=== PATIENT | female | born 1945 | race African-American/Black ===

== ENCOUNTER 2019-02-25 16:26 | Emergency (ER) | payer OTHER ==
[~2019-02-25] VITALS: Ht 167.6 cm; Wt 59.0 kg
[~2019-02-25 16:26] MED LIST: DIOCTO50 MG/5 ML PER TUBE; DSS250 MG PO; FERROUS SU220 MG/53 PER TUBE; IRON325 PO; LEVAQUIN 500 M500 MG PO; LEVOTHYROXIN0.025 MG PER TUBE; METOPROLOL TART25 MG PER TUBE; MIRALAX17 GM PER TUBE; MULTI-DELYN5 ML PER TUBE; PEPCID20 MG PER TUBE; PREDNISONE 5 MG5 M1 PER TUBE; PROMETHAZINE/C118 ML PO; SPIRONOLACTONE25 M1 PER TUBE; TERAZOSIN HCL10 MG PER TUBE; TYLENOL325 MG PER TUBE; URECHOLINE PER TUBE; VITAMINC500 PER TUBE; VITAMINC500 PO; XARELTO10 MG PER TUBE; [UNRECOGNIZED DRUG - OTHER] PO
[2019-02-25 17:00] LABS: URINE BILIRUBIN NEGATIVE (Negative); URINE BLOOD TRACE (Negative); URINE CLARITY SL CLOUDY; URINE COLOR YELLOW; URINE GLUCOSE-RANDOM* NEGATIVE (Negative); URINE KETONES NEGATIVE (Negative); URINE PROTEIN (DIPSTICK) 1+ (Negative); URINE UROBILINOGEN 0.2 E.U./dl (0.2-1.0)
[2019-02-25 17:01] LABS: URINE LEUKOCYTES-REFLEX 3+ (Negative); URINE NITRITE-REFLEX POSITIVE (Negative)
[2019-02-25 17:17] LABS: CASTS None Seen /LPF (None Seen); CRYSTALS None Seen /LPF (None Seen); SQUAMOUS 0-3 Few /LPF (0-3)
[2019-02-25 17:18] LABS: BACTERIA-REFLEX >30 Many /HPF (None Seen); URINE RBC 0-2 Rare /HPF (0-2); URINE WBC-REFLEX >25 Many /HPF (0-5)
[2019-02-25 17:22] LABS: ABSOLUTE NEUTROPHILS 3.1 thou/uL (1.4-8.2); BASOPHILS 0.7 % (0.0-2.0); EOSINOPHILS 2.5 % (0.0-3.0); HEMATOCRIT 36.8 % (37.0-47.0); HEMOGLOBIN 12.2 gm/dL (12.0-15.0); LYMPHOCYTES 30.1 % (24.0-44.0); MCH 28.3 pg (26.0-34.0); MCV 85.7 fL (80.0-100.0); MONOCYTES 10.7 % (1.0-8.0); PLATELET COUNT 214 thou/uL (150-400); RDW 14.5 % (10.5-14.5); WBC 5.6 thou/uL (4.0-11.0)
[2019-02-25 17:35] LABS: ALBUMIN 3.4 g/dL (3.4-5.0); CALCIUM 9.6 mg/dL (8.5-10.1); CREATININE 0.9 mg/dL (0.6-1.0); TOTAL BILIRUBIN 0.3 mg/dL (<0.1-1.0)
[2019-02-25 17:47] LABS: POTASSIUM 3.7 mmol/L (3.5-5.1)
[2019-02-25] MEDS ORDERED: KEFLEX500 M1 PO (18:00)
[2019-02-25 18:24] VITALS: BP 135/75
== END 2019-02-25 18:03 | disposition home or self-care (01) ==
LOC: ER 16:26
PROVIDERS: Nurse Practitioner; Student in an Organized Health Care Education/Training Program
DX: N39.0 Urinary tract infection, site not specified (principal); E86.0 Dehydration; I10 Essential (primary) hypertension; Z86.73 Personal history of transient ischemic attack (TIA), and cerebral infarction without residual deficits; Z88.6 Allergy status to analgesic agent

== ENCOUNTER → 2019-05-03 | Outpatient (CLI) | payer OTHER ==
[~2019-05-03] MED LIST changes: +KEFLEX500 M1 PO
== END ==
LOC: CAT 10:28 → EDSTATUS 16:59
DX: I67.82 Cerebral ischemia (principal); R90.82 White matter disease, unspecified; G93.89 Other specified disorders of brain

== ENCOUNTER → 2019-05-05 | Outpatient (CLI) | payer OTHER | LOC: MRI 12:39 | DX: I63.9 Cerebral infarction, unspecified (principal); G93.89 Other specified disorders of brain; R90.82 White matter disease, unspecified ==

== ENCOUNTER 2020-10-02 17:53 | Emergency (ER) | payer OTHER ==
[~2020-10-02] VITALS: Ht 160 cm; Wt 61.2 kg
[2020-10-02 19:33] LABS: HEMATOCRIT 35.6 % (37.0-47.0); HEMOGLOBIN 11.4 gm/dL (12.0-15.0); MCH 27.7 pg (26.0-34.0); MCV 86.7 fL (80.0-100.0); RDW 14.2 % (10.5-14.5); WBC 6.6 thou/uL (4.0-11.0)
[2020-10-02 19:42] LABS: ANION GAP 10 mmol/L (7-16); BUN 30 mg/dL (7-18); CALCIUM 9.5 mg/dL (8.5-10.1); CHLORIDE 100 mmol/L (98-107); CO2 26 mmol/L (21-32); CREATININE 0.7 mg/dL (0.6-1.0); GLUCOSE 102 mg/dL (74-106); POTASSIUM 5.2 mmol/L (3.5-5.1); SODIUM 136 mmol/L (136-145)
[2020-10-02 19:53] LABS: ALBUMIN 2.9 g/dL (3.4-5.0); DIRECT BILIRUBIN < 0.1 mg/dL (<0.1-0.2); LIPASE 87 U/L (73-393); SGOT 61 U/L (15-37); SGPT 16 U/L (30-65); TOTAL BILIRUBIN 0.6 mg/dL (0.2-1.0); TOTAL PROTEIN 8.6 g/dL (6.4-8.2); TROPONIN-I <0.06 ng/mL (<0.06)
[2020-10-02 20:08] LABS: ABSOLUTE NEUTROPHILS 4.8 thou/uL (1.4-8.2)
[2020-10-02 20:09] LABS: PLATELET COUNT 229 thou/uL (150-400)
[2020-10-02 22:32] VITALS: BP 108/63
--- NOTE | 2020-10-03 07:17 | EKG ---
[place] [address] [facility] [place] [address] ELECTROCARDIOGRAM REPORT Name: LUIS ENRIQUE FLETCHER Room #: RAMY Allen#: [id number] Admission: 10/02/20 Attend Phys: Discharge: 10/02/20 Date of : 43 Report #: [id number] [facility] ED Test Date: 2020-10-02 Test Time: 18:06:37 Pat Name: LUIS ENRIQUE FLETCHER Department: Room: Gender: F Geospatial Applications Developer: KF : 1945 Requested By: Karan Rodarte Order Number: [id number] MD: Parag Spencer Measurements Intervals [place] Rate: 88 P: 93 MO: 135 QRS: 85 QRSD: 88 T: 51 QT: 388 QTc: 470 Interpretive Statements Sinus tachycardia Paired ventricular premature complexes Borderline right axis deviation Probable anteroseptal infarct, old Baseline wander in lead(s) V2 Compared to ECG 03/30/2015 10:10:48 Ventricular premature complex(es) now present ST (T wave) deviation now present Poor R-wave progression no longer present Electronically Signed On 10-03-2020 7:17:22 PHYSICAL SCIENCE TECHNICIAN by Parag Spencer [email or web address] <ELECTRONICALLY SIGNED> By: Parag Spencer MD, FAC 10/03/20 0717 180 180 Parag Spencer MD, [facility] /EPI
== END 2020-10-02 22:49 ==
LOC: ER 17:53
PROVIDERS: Emergency Medicine
DX: U07.1 COVID-19 (principal); R55 Syncope and collapse; R42 Dizziness and giddiness; R53.1 Weakness; E86.0 Dehydration; D64.9 Anemia, unspecified; I10 Essential (primary) hypertension; E03.9 Hypothyroidism, unspecified; Z86.718 Personal history of other venous thrombosis and embolism; Z86.73 Personal history of transient ischemic attack (TIA), and cerebral infarction without residual deficits; Z79.899 Other long term (current) drug therapy; Z79.2 Long term (current) use of antibiotics; Z88.6 Allergy status to analgesic agent

== ENCOUNTER 2020-10-04 10:51 | Emergency (ER) | payer OTHER ==
[~2020-10-04] VITALS: Ht 160 cm; Wt 45.8 kg
[2020-10-04 11:19] LABS: ABSOLUTE NEUTROPHILS 3.5 thou/uL (1.4-8.2); BASOPHILS 0.5 % (0.0-2.0); HEMATOCRIT 33.8 % (37.0-47.0); HEMOGLOBIN 11.1 gm/dL (12.0-15.0); LYMPHOCYTES 17.8 % (24.0-44.0); MCH 28.1 pg (26.0-34.0); MCV 85.3 fL (80.0-100.0); MONOCYTES 13.8 % (1.0-8.0); PLATELET COUNT 185 thou/uL (150-400); POLYS 67.9 % (36.0-66.0); RBC 3.96 mil/uL (4.20-5.00); RDW 13.8 % (10.5-14.5); WBC 5.1 thou/uL (4.0-11.0)
[2020-10-04 13:02] LABS: URINE BLOOD 1+ (Negative); URINE CLARITY CLOUDY; URINE COLOR YELLOW; URINE GLUCOSE-RANDOM* NEGATIVE (Negative); URINE KETONES TRACE (Negative); URINE NITRITE-REFLEX NEGATIVE (Negative); URINE PROTEIN (DIPSTICK) 1+ (Negative); URINE SPECIFIC GRAVITY 1.025 (1.005-1.035); URINE UROBILINOGEN 0.2 E.U./dl (0.2-1.0)
[2020-10-04 13:03] LABS: URINE LEUKOCYTES-REFLEX 2+ (Negative)
[2020-10-04 13:06] LABS: ICTOTEST (BILI CONFIRMATORY) Negative (Negative); URINE BILIRUBIN NEGATIVE (Negative)
[2020-10-04 13:54] LABS: ANION GAP 12 mmol/L (7-16); BUN 21 mg/dL (7-18); CALCIUM 9.3 mg/dL (8.5-10.1); CHLORIDE 104 mmol/L (98-107); CO2 26 mmol/L (21-32); CREATININE 0.8 mg/dL (0.6-1.0); GLUCOSE 121 mg/dL (74-106); SODIUM 142 mmol/L (136-145)
[2020-10-04 14:02] LABS: SQUAMOUS 0-3 Few /LPF (0-3); URINE RBC 3-10 Few /HPF (0-2); URINE WBC-REFLEX >25 Many /HPF (0-5)
[2020-10-04 14:03] LABS: BACTERIA-REFLEX >30 Many /HPF (None Seen); CASTS None Seen /LPF (None Seen); CRYSTALS None Seen /LPF (None Seen)
[2020-10-04 14:07] LABS: ALBUMIN 2.7 g/dL (3.4-5.0); DIRECT BILIRUBIN < 0.1 mg/dL (<0.1-0.2); LIPASE 96 U/L (73-393); SGOT 52 U/L (15-37); SGPT 17 U/L (30-65); TOTAL BILIRUBIN 0.5 mg/dL (0.2-1.0); TOTAL PROTEIN 8.3 g/dL (6.4-8.2)
[2020-10-04 16:39] VITALS: BP 117/65
== END 2020-10-04 21:23 ==
LOC: ER 10:51
PROVIDERS: Nurse Practitioner
DX: U07.1 COVID-19 (principal); J12.82 Pneumonia due to coronavirus disease 2019; N39.0 Urinary tract infection, site not specified; Z86.73 Personal history of transient ischemic attack (TIA), and cerebral infarction without residual deficits; Z93.1 Gastrostomy status; Z79.899 Other long term (current) drug therapy; Z79.2 Long term (current) use of antibiotics; Z88.6 Allergy status to analgesic agent

== ENCOUNTER 2020-10-24 16:08 | Inpatient (IN) | payer OTHER ==
[~2020-10-24] VITALS: Ht 162.6 cm; Wt 46.0 kg
[~2020-10-24 16:08] MED LIST changes: -PEPCID20 MG PER TUBE; +PEPCID20 MG PO; -TYLENOL325 MG PER TUBE; +TYLENOL325 MG PO
[2020-10-24 16:10] VITALS: BP 110/70
[2020-10-24 17:18] LABS: BASOPHILS 0.4 % (0.0-2.0); EOSINOPHILS 0.3 % (0.0-3.0); HEMATOCRIT 37.1 % (37.0-47.0); HEMOGLOBIN 11.8 gm/dL (12.0-15.0); LYMPHOCYTES 6.2 % (24.0-44.0); MCH 27.7 pg (26.0-34.0); MCHC 31.7 g/dL (28.0-37.0); MCV 87.4 fL (80.0-100.0); MONOCYTES 6.1 % (1.0-8.0); PLATELET COUNT 219 thou/uL (150-400); RBC 4.24 mil/uL (4.20-5.00); RDW 15.6 % (10.5-14.5); WBC 13.8 thou/uL (4.0-11.0)
[2020-10-24 17:19] LABS: ANION GAP 11 mmol/L (7-16); BUN 36 mg/dL (7-18); CALCIUM 9.6 mg/dL (8.5-10.1); CHLORIDE 98 mmol/L (98-107); CO2 27 mmol/L (21-32); GLUCOSE 127 mg/dL (74-106); POTASSIUM 5.8 mmol/L (3.5-5.1); SODIUM 136 mmol/L (136-145)
[2020-10-24 17:29] LABS: ALBUMIN 2.4 g/dL (3.4-5.0); SGOT 65 U/L (15-37); SGPT 25 U/L (30-65); TOTAL BILIRUBIN 0.6 mg/dL (0.2-1.0); TOTAL PROTEIN 8.4 g/dL (6.4-8.2); TROPONIN-I <0.06 ng/mL (<0.06)
[2020-10-24 17:33] LABS: APTT 22.2 Seconds (24.5-32.8); D-DIMER 3.75 ug/mLFEU (0.19-0.50); PROTIME 11.5 Seconds (9.3-11.4)
[2020-10-24 17:36] LABS: URINE BILIRUBIN NEGATIVE (Negative); URINE BLOOD NEGATIVE (Negative); URINE CLARITY CLEAR; URINE COLOR YELLOW; URINE GLUCOSE-RANDOM* NEGATIVE (Negative); URINE KETONES NEGATIVE (Negative); URINE NITRITE-REFLEX NEGATIVE (Negative); URINE PROTEIN (DIPSTICK) TRACE (Negative); URINE SPECIFIC GRAVITY >= 1.030 (1.005-1.035); URINE UROBILINOGEN 0.2 E.U./dl (0.2-1.0)
[2020-10-24 17:41] LABS: URINE LEUKOCYTES-REFLEX 1+ (Negative)
[2020-10-24 18:03] LABS: CRYSTALS None Seen /LPF (None Seen); HYALINE CASTS 0-3 Few /LPF (None Seen); MUCUS 0-3 Light strn/LPF (None Seen); SQUAMOUS 0-3 Few /LPF (0-3); URINE RBC 0-2 Rare /HPF (0-2); URINE WBC-REFLEX 6-15 Few /HPF (0-5)
[2020-10-24 18:22] VITALS: BP 110/70
[2020-10-24 18:34] VITALS: BP 112/61
[2020-10-24 20:17] LABS: TOTAL PROTEIN 6.6 g/dL (6.4-8.2)
--- NOTE | 2020-10-24 23:32 | NUR ---
admission note: provider ordered medicaion for this patient in PO and PER Tube administrations. The provider also ordered te patient to be NPO. The provider ordered sensitive medication that need to be given to the patient. Patient Does NOT have a PEG TUBE!. This was improperly assessed in ED. I did a simple bedside swollow eval on patient to check for hoarseness or choking when giving PO. No hoarseness or gurgling or choking noted, with nectar thick liquids. i was able to get er to swollow the kexalate and the ivermectin. she is only alert to person, se will say no and her name occassionally.
[2020-10-24 23:53] VITALS: BP 119/76
[2020-10-25 03:00] LABS: HEMATOCRIT 32.1 % (37.0-47.0); MCH 27.2 pg (26.0-34.0); MCHC 31.2 g/dL (28.0-37.0); MCV 87.1 fL (80.0-100.0); RBC 3.69 mil/uL (4.20-5.00); RDW 14.9 % (10.5-14.5); WBC 11.5 thou/uL (4.0-11.0)
[2020-10-25 03:25] LABS: CALCIUM 8.1 mg/dL (8.5-10.1); CREATININE 0.8 mg/dL (0.6-1.0); MAGNESIUM 1.8 mg/dL (1.8-2.4)
[2020-10-25 03:50] LABS: POTASSIUM 3.8 mmol/L (3.5-5.1)
--- NOTE | 2020-10-25 03:53 | NUR ---
CONTINUES ON ROOM AIR. AFEBRILE TONIGHT. SHE IS ALERT TO SELF AND AWAKENS EASILY. NO SIGNS OF PAIN OR DISCOMFORT. RESTING QUIETLY TONIGHT. CONTINUES ON IV FLUIDS.
[2020-10-25 05:48] VITALS: BP 117/69
--- NOTE | 2020-10-25 06:23 | NUR ---
0500: LAB CALLED WITH COVID -19 POSITIVE RESULTS.
--- NOTE | 2020-10-25 07:26 | EKG ---
[address] [place] [address] ELECTROCARDIOGRAM REPORT Name: LUIS ENRIQUE FLETCHER Room #: 353-P ADM IN M.R.#: [id number] Admission: 10/24/20 Attend Phys: Terry Dumont MD Discharge: Date of : 43 Report #: [id number] [facility] ED Test Date: 2020-10-24 Test Time: 16:14:16 Pat Name: LUIS ENRIQUE FLETCHER Department: Room: 353 Gender: F Roll Tube Setter: RONI OROPEZA : 1945 Requested By: Nima Umana Order Number: [id number] MD: Parag Spencer Measurements Intervals [place] Rate: 132 P: 57 ND: 113 QRS: 24 QRSD: 76 T: 5 QT: 313 QTc: 464 Interpretive Statements Sinus tachycardia Probable left atrial enlargement Borderline low voltage, extremity leads Artifact in lead(s) aVF,V1,V2 and baseline wander in lead(s) V5 Compared to ECG 10/02/2020 18:06:37 Ventricular premature complex(es) no longer present Electronically Signed On 10-25-2020 7:26:05 REFRACTORY TECHNICIAN by Parag Spencer [email or web address] <ELECTRONICALLY SIGNED> By: Parag Spencer MD, FAC 10/25/20 0726 1614 1614 Parag Spencer MD, [facility] /EPI
[2020-10-25 08:51] VITALS: BP 125/78
--- NOTE | 2020-10-25 10:57 | NUR ---
WOUND CARE CONSULT; DUE TO COVID ISOLATION DISCUSSED WOUND CARE W/ PRODUCTION CORRUGATOR LORENZO, VIEWED PHOTO, STATES AREA ALREADY DRESSED THIS AM W/ ZGUARD AND BORDER FOAM DRSG APPLIED TO SACRAL AREA, MUCH OLD SCARRRING PRESENT, OLD PRESSURE INJURY, SCANT BRIGHT RED BLEEDING NOTED IN PHOTO, NO S/S INFECTION RECOMMENDATIONS; 1-LOW AIR LOSS PUMP TO BED 2-CLEANSE AREA W/ NS OR WOUND CLEANSER, APPLY ZGUARD, BORDER FOAM DRSG DAILY AND PRN, TURN Q 2HOURS AND PRN PRODUCTION CORRUGATOR JAY
--- NOTE | 2020-10-25 11:53 | NUR ---
Patient admits from ltc at [facility]. She orientated to person. She admits to COVID Enhanced isolation unit. patient tested positive for COVID approx 3 1/2 weeks ago. Plan return to [facility] once stable. Sp with son Dennys updated on role of casemgt.
[2020-10-25 12:47] VITALS: BP 113/72
[2020-10-25] MEDS ORDERED: SUPER THERAVIT1 EACH PO (14:56)
[2020-10-25] MEDS ORDERED: MYRBETRIQ25 MG PO (14:57)
[2020-10-25] MEDS ORDERED: NUEDEXTA 20-101 EACH PO (14:58)
[2020-10-25] MEDS ORDERED: LEVO-T25 MCG PO (15:01)
--- NOTE | 2020-10-25 15:20 | NUR ---
PT IS RESTING COMFORTABLE, ALERT TO SELF, ABLE TO HAVE SIMPLE CONVERSATIONS AND FOLLOW SIMPLE COMMNDS. PT DENIES HAVING ANY PAIN, NAUSEA AND VOMITTING.CONTINUES TO ON ROOM AIR, NO SIGNS OF DISTRESS NOTED. INCONTINENT OF BOWEL AND URINE. FALL PRECAUTIONS IN PLACE. DENIES ANY NEEDS OLIVIA. PT SON CALLED EARLIER THIS AM AND UPDATED ABOUT PT CARE.
[2020-10-25 17:33] VITALS: BP 102/66
--- NOTE | 2020-10-25 17:55 | NUR ---
CALLED PT DPOA (SON) TO GET CONSENT FOR PT BRONCHSCOPY, WANTED TO TALK TO DR. MORGAN ABOUT PROCEDURE FIRST. DR. MORGAN MADE AWARE.
[2020-10-25 19:44] VITALS: BP 122/79
[2020-10-26 03:31] VITALS: BP 126/83
[2020-10-26 04:24] LABS: HEMATOCRIT 28.3 % (37.0-47.0); HEMOGLOBIN 9.2 gm/dL (12.0-15.0); MCHC 32.3 g/dL (28.0-37.0); MCV 86.7 fL (80.0-100.0); RBC 3.26 mil/uL (4.20-5.00); RDW 14.5 % (10.5-14.5); WBC 8.2 thou/uL (4.0-11.0)
[2020-10-26 04:41] LABS: CALCIUM 8.6 mg/dL (8.5-10.1); CREATININE 0.7 mg/dL (0.6-1.0); MAGNESIUM 1.8 mg/dL (1.8-2.4); POTASSIUM 3.3 mmol/L (3.5-5.1)
--- NOTE | 2020-10-26 05:34 | NUR ---
CONTINUES ON ROOM AIR. PULMOARY PLANNING FOR BRONCHOSCOPY TODAY. CAREPLAN REVIEWE. DENIES PAIN. RESTING QUIETLY.
[2020-10-26 07:50] VITALS: BP 120/70
--- NOTE | 2020-10-26 08:48 | HC ---
[facility] [place] [address] CONSULTATION Name: LUIS ENRIQUE FLETCHER Room #: 353-P ADM IN M.R.#: [id number] Admission: 10/24/20 Attend Phys: Terry Dumont MD Discharge: Date of : 43 Report #: [id number] THIS REPORT FOR: cc: Nat Lee MD, Ramilo MD Barry,Sohan Arteaga MD ~ DATE OF SERVICE: 10/25/2020 INFECTIOUS DISEASE CONSULTATION ATTENDING PHYSICIAN: Dr. Dumont. REASON FOR EVALUATION: Pneumonitis in the setting of recent COVID-19 infection. HISTORY OF SUBJECTIVE: Chart reviewed, patient examined. This is a 75-year-old who is disabled, lives in a facility, was referred for dyspnea as well as tachypnea and tachycardia. It is notable she had recent COVID infection on 10/04/2020 due to concerns about overall status, she was referred to the Emergency Room. Initial chest x-ray was fairly unremarkable, although CT did show no evidence of pulmonary emboli, did, however, show right lower lobe subsegmental collapse raised question of possible obstructing mass due to right hilar adenopathy, found to have lactic acid elevated at 5.5 and a CRP of 245.9. Procalcitonin was 0.51. She did have a persistent positive coronavirus PCR as well. Blood cultures have been sterile thus far. Empirically started on therapy with Levaquin, had been given a single dose of Zosyn as well. With her previous stroke, it is difficult to ascertain any details of her history. She does awake, seems to respond to questions, although it is difficult to know with certainty the reliability of her answers. ALLERGIES: ASPIRIN. CURRENT MEDICATIONS: Include levofloxacin, rivaroxaban, thiamine, ascorbic acid, spironolactone, levothyroxine, methylprednisolone, famotidine, did receive ivermectin as well. PAST MEDICAL HISTORY: Known history of hypertension, previous stroke with fairly profound residual deficits. SOCIAL HISTORY: Nonsmoker, no ethanol, no illicit drug use. FAMILY HISTORY: Noncontributory. REVIEW OF SYSTEMS: Otherwise, unremarkable and not reliably obtained. PHYSICAL EXAMINATION: [facility] [address] [place] [address] CONSULTATION Name: LUIS ENRIQUE FLETCHER Room #: 353-P [facility] IN M.R.#: [id number] Admission: 10/24/20 Attend Phys: Terry Dumont MD Discharge: Date of : 43 Report #: [id number] GENERAL: She appears chronically ill and undernourished, yugb-yu-ypangamn distress. VITAL SIGNS: Temperature 96, pulse 79, respirations 16, and blood pressure 113/72. SKIN: Warm, dry, no rashes. HEENT: Extraocular muscles intact. NECK: Appears to be supple. She is not requiring supplemental oxygen at this point. LUNGS: Diminished breath sounds. HEART: Regular. I do not appreciate a murmur. ABDOMEN: Soft, no apparent peritoneal signs. GENITOURINARY AND RECTAL: Deferred. LABORATORY DATA: D-dimer elevated at 4.11. Blood cultures have been sterile thus far. Coronavirus PCR is still positive. Lactic acid is 1.6. Electrolytes: Sodium 143, potassium 3.8, chloride 106, bicarbonate is 29, anion gap of 8, BUN and creatinine 27 and 0.8, and glucose 137. Estimated GFR of 85. CBC: White count of 9.5, H and H 10.0 and 32.1, and platelets of 168. TSH of 1.331. CTA chest PE protocol noted above. ASSESSMENT AND PLAN: Pneumonitis in setting of previous COVID infection, certainly raises question of secondary bacterial cause. There may be a mechanical issue as well either a mucus plug or perhaps ___ plans for pulmonary evaluation and possible bronchoscopy. At this point, it is difficult to ascertain her baseline status. We will monitor expectantly, certainly is tenuous. <ELECTRONICALLY SIGNED> By: Sohan Shanks MD 10/26/20 0848 1538 1805 Sohan Shanks MD /nt
--- NOTE | 2020-10-26 11:30 | NUR ---
WOUND CARE F/U; DUE TO COVID RESTRICTIONS I REVIEWED THE PATIENTS WOUND WITH THE RN. NEW PICTURES WERE TAKEN YESTERDAY AND AR CLEAR. THERE IS A LOT OF SCARRING TO THE AREA FROM PRVIOUS INJURY. A SMALL FRICTION AREA WAS SEEN WITH SOME CAPPILARY BLEEDING REPORTED. RECOMMENDATIONS; NO CHANGES TODAY.
[2020-10-26 11:41] VITALS: BP 116/67
--- NOTE | 2020-10-26 14:33 | NUR ---
TORRES reviewed chart and spoke with nursing and attending physician. Pt remains in Enhanced Isolation due to COVID. Pt is afebrile and not requiring O2. Pt is on IV abx and IV steroids. Pt to have a bronchoscopy on Thursday. No weekend discharge planned. TORRES updated [facility] in admissions at [facility]. TORRES spoke with pt's son, Dennys, via phone to provide update. Dennys is aware of plan and confirmed discharge back to [facility] when medically stable. TORRES is following to assist as needed with discharge planning.
[2020-10-26 15:53] VITALS: BP 105/64
--- NOTE | 2020-10-26 18:21 | NUR ---
PATIENT EATS VERY SMALL AMOUNT WITH MEALS. COUGHS EVEN WHEN EATIN PUDDING. SHE IS INCONT OF BOWEL AND BLADDER KEPT CLEAN AND DRY. WILL CONT WITH PLAN OF CARE.
[2020-10-26 19:51] VITALS: BP 114/63
[2020-10-27 04:44] VITALS: BP 135/83
[2020-10-27 04:52] LABS: CALCIUM 8.6 mg/dL (8.5-10.1); CREATININE 0.7 mg/dL (0.6-1.0); MAGNESIUM 1.7 mg/dL (1.8-2.4); POTASSIUM 3.6 mmol/L (3.5-5.1)
--- NOTE | 2020-10-27 04:52 | NUR ---
PROGRESS PT ALERT AND RESPONDS TO QUESTIONS GIVES YES AND NO ANSWERS. ATE A PUDDING AND 120 ML'S OF PUDDING THICK APPLE JUICE NO COUGHING OR CHOKING NOTED UNTIL LAST BITE THEN SHE CHOKED AND COUGHED FOR 30 SECONDS UNTIL SHE WAS CLEAR. REPOSITIONED NEEDED BED BATH GIVEN, PERICARE COMPLETED BARRIER CREAM APPLIED WOUND TO SACRUM WITHOUT DRAINAGE. HAD A SMALL FORMED BM SENT SAMPLE TO LAB FOR OCCULT BLOOD, PT INCONTINENT OF BOWEL AND BLADDER URINE ON CHUX LOOKS DARK YELLOW. IVF'S INFUSING ORDERED. PT MAY HAVE BRONCHOSCOPY TODAY OR TOMORROW.
[2020-10-27 04:56] LABS: HEMATOCRIT 26.5 % (37.0-47.0); HEMOGLOBIN 8.6 gm/dL (12.0-15.0); MCHC 32.4 g/dL (28.0-37.0); MCV 86.4 fL (80.0-100.0); RBC 3.06 mil/uL (4.20-5.00); WBC 7.2 thou/uL (4.0-11.0)
[2020-10-27 07:11] VITALS: BP 130/79
[2020-10-27 07:56] LABS: HEMATOCRIT 26.6 % (37.0-47.0); HEMOGLOBIN 8.9 gm/dL (12.0-15.0)
[2020-10-27 08:19] LABS: INR 1.1; PROTIME 11.3 Seconds (9.3-11.4)
[2020-10-27 10:55] VITALS: BP 126/74
[2020-10-27 11:52] LABS: CALCIUM 8.7 mg/dL (8.5-10.1); CREATININE 0.7 mg/dL (0.6-1.0); MAGNESIUM 1.7 mg/dL (1.8-2.4); POTASSIUM 3.4 mmol/L (3.5-5.1)
--- NOTE | 2020-10-27 14:29 | NUR ---
VAT CONSULTED FOR PICC LINE FOR PPN. PT'S LABS,MEDS,HX,ORDER,CONSENT REVIEWED. ATTEMPTED BRACHIAL AND BASILIC OF RIGHT ARM UNABLE TO PASS CATHETER PAST SHOULDER. NEW KIT OBTAINED. GIULIA BRACHIAL WAS WIDELY PATENT WITH USG. 4FR DL POWER PICC TRIMMED TO 41CM INSERTED TO M0CM EXTERNAL. STAT CXR ORDERED. PT TOLERATED WELL.
[2020-10-27 14:58] VITALS: BP 152/92
--- NOTE | 2020-10-27 15:00 | NUR ---
CXR CONFIRMED PICC PLACEMENT, PICC RELEASED FOR IMMEDIATE USE PER PROTOCOL TO MARITZA TAMAYO
--- NOTE | 2020-10-27 16:46 | NUR ---
PATIENT HAD A PICC PLACED THIS AFTERNOON AND PPN STARTED. SHE IS NOW SLEEPING. SHE CONT TO IMPROVED. POSSIBLE SWALLO EXAM THURSDAY HER SWALLOWING IS ACCOMPANIED BY COUGHING. INCONT ON BOWEL AND BLADDER. KEPT CLEAN AND DRY.
[2020-10-27 20:49] VITALS: BP 158/99
[2020-10-28 04:00] VITALS: BP 129/65
[2020-10-28 07:12] LABS: ABSOLUTE NEUTROPHILS 5.5 thou/uL (1.4-8.2); BASOPHILS 0.1 % (0.0-2.0); HEMATOCRIT 30.8 % (37.0-47.0); LYMPHOCYTES 6.2 % (24.0-44.0); MCH 27.8 pg (26.0-34.0); MCHC 32.3 g/dL (28.0-37.0); MCV 85.8 fL (80.0-100.0); MONOCYTES 5.1 % (1.0-8.0); PLATELET COUNT 169 thou/uL (150-400); POLYS 88.6 % (36.0-66.0); RBC 3.59 mil/uL (4.20-5.00); RDW 14.5 % (10.5-14.5); WBC 6.2 thou/uL (4.0-11.0)
[2020-10-28 07:30] VITALS: BP 131/74
--- NOTE | 2020-10-28 07:47 | NUR ---
PROGRESS PT REPOSITIONED FREQUENTLY TPN INFUSING AT 40CC/HR, ACCUCCHECKS Q6HRS NO SSI PT NPO ORAL CARE PROVIDED. CONTINUE TO MONITOR.
[2020-10-28 08:02] LABS: ALBUMIN 2.2 g/dL (3.4-5.0); CALCIUM 8.7 mg/dL (8.5-10.1); CREATININE 0.6 mg/dL (0.6-1.0); PHOSPHORUS 1.6 mg/dL (2.5-4.9); TOTAL BILIRUBIN 0.2 mg/dL (0.2-1.0); TOTAL PROTEIN 6.6 g/dL (6.4-8.2)
[2020-10-28 09:09] LABS: POTASSIUM 2.6 mmol/L (3.5-5.1)
--- NOTE | 2020-10-28 18:48 | NUR ---
PATIENT HAS RESTED IN BED THROUGH THE DAY. DOES NOT SEEM TO BE IN PAIN. PLEASANT WITH CARE. WILL CONT WITH PLAN OF CARE.
[2020-10-28 20:15] VITALS: BP 113/64
[2020-10-29 03:57] VITALS: BP 108/78
[2020-10-29 05:45] LABS: ABSOLUTE NEUTROPHILS 5.1 thou/uL (1.4-8.2); BASOPHILS 0.1 % (0.0-2.0); HEMATOCRIT 34.7 % (37.0-47.0); HEMOGLOBIN 11.2 gm/dL (12.0-15.0); LYMPHOCYTES 4.5 % (24.0-44.0); MCH 27.5 pg (26.0-34.0); MCHC 32.3 g/dL (28.0-37.0); MCV 85.2 fL (80.0-100.0); MONOCYTES 9.7 % (1.0-8.0); PLATELET COUNT 166 thou/uL (150-400); POLYS 85.7 % (36.0-66.0); RBC 4.07 mil/uL (4.20-5.00); WBC 5.9 thou/uL (4.0-11.0)
--- NOTE | 2020-10-29 06:00 | NUR ---
Pt. oriented to self only but can follow directions. Tolerating room air well with O2 sat in the upper 90's to 100%.Cont. on enhanced precaution,afebrile. Kept NPO per order , oral care done. PPN infusing per PICC line. Incontinent of bladder , external female cath in place. She has been repositioned. Z guard applied to sacrum after each incontinence and applied foam dressing this am. Bed alarm on for safety and SCD's in place.
[2020-10-29 06:13] LABS: ALBUMIN 2.2 g/dL (3.4-5.0); CALCIUM 8.7 mg/dL (8.5-10.1); CREATININE 0.5 mg/dL (0.6-1.0); MAGNESIUM 1.6 mg/dL (1.8-2.4); PHOSPHORUS 1.7 mg/dL (2.6-4.7); TOTAL BILIRUBIN 0.2 mg/dL (0.2-1.0); TOTAL PROTEIN 6.7 g/dL (6.4-8.2)
[2020-10-29 06:21] LABS: POTASSIUM 2.8 mmol/L (3.5-5.1)
[2020-10-29 07:27] VITALS: BP 106/75
--- NOTE | 2020-10-29 11:04 | NUR ---
Recommend replace K/Phos/Mg as possible indication of pt with refeeding syndrome. Suggest change to TPN 5%AA/15dex/2.9% lipids with order for pharmacy to manage TPN. If unable to progress to oral intake with adequacy, suggest feeding tube if within pts plan of care goals
--- NOTE | 2020-10-29 11:20 | NUR ---
WOUND CARE F/U; DUE TO COVID ISOLATION DISCUSSED WOUND CARE W/ SALT MAKER KYRIE, STATES WOUND IS ALMOST HEALED, ALREADY DRESSED THIS AM W/ ZGUARD AND BORDER FOAM, NO CHANGES TODAY, REMAINS ON LOW AIR LOSS PUMP TO BED RECOMMENDATIONS; CONT CURRENT POC, OFF LOADING, PRESSURE RELIEF SALT MAKER AWARE
--- NOTE | 2020-10-29 13:50 | NUR ---
TORRES reviewed chart and spoke with nursing. Pt remains in Enhanced Isolation due to COVID. Pt is afebrile and not requiring O2. Pt is on PPN and may start on TPN. Pt had ST eval earlier today. Recommendation for pureed diet with pudding thick liquids. Pt's chest xray shows slight improvement. No bronch planned at this time. TORRES updated [facility] in admissions at [facility]. TORRES is following to assist as needed with discharge planning.
[2020-10-29 15:12] VITALS: BP 105/68
--- NOTE | 2020-10-29 18:09 | NUR ---
ASSUMED PATIENT CARE AT 0700. ALERT TO SELF. EXPRESSIVE APHASIA. PATIENR TOLERATED PUREE DIET. PULLED PICC LINE OUT. INCONTIUE URINE, ASSISTED PATIWNT Q2H TURN . SLOWLY TOWART TO POC GOALS.
[2020-10-29 20:01] VITALS: BP 109/74
--- NOTE | 2020-10-30 00:55 | NUR ---
PT ALERT. EXPRESSIVE APHASIA NOTED. FOLLOWS COMMANDS. VSS AFEBRILE. SAT WNL ON RA . REPOSITIONING PT Q 2 HRS. DRESSING TO SACRAL AREA IS INTACT. PURE WIC IN PLACE. NO C/O PAIN. NO S/S NELLIE DISTRESS. WILL CONTINUE TO MONITOR PT FOR CHANGES.
[2020-10-30 04:16] VITALS: BP 104/67
[2020-10-30 05:58] LABS: HEMATOCRIT 38.3 % (37.0-47.0); HEMOGLOBIN 12.3 gm/dL (12.0-15.0); MCH 27.5 pg (26.0-34.0); MCHC 32.2 g/dL (28.0-37.0); MCV 85.6 fL (80.0-100.0); RBC 4.47 mil/uL (4.20-5.00); RDW 14.6 % (10.5-14.5); WBC 12.4 thou/uL (4.0-11.0)
[2020-10-30 06:13] LABS: CALCIUM 9.4 mg/dL (8.5-10.1); CREATININE 0.8 mg/dL (0.6-1.0); MAGNESIUM 2.4 mg/dL (1.8-2.4); PHOSPHORUS 1.6 mg/dL (2.5-4.9); POTASSIUM 4.8 mmol/L (3.5-5.1)
--- NOTE | 2020-10-30 06:46 | NUR ---
PT HAS HAD A QUIETL NIGHT. NO S/S DISTRESS . INC SEVERAL TIMES. OURE WICK INTACT. PROGRESSING TOWARDS D/C GOALS.
[2020-10-30 07:19] VITALS: BP 123/82
[2020-10-30] MEDS ORDERED: LEVOFLOXACIN500 MG PO (07:36)
[2020-10-30] MEDS ORDERED: SPIRONOLACTONE25 M1 PER TUBE (07:36)
[2020-10-30] MEDS ORDERED: PREDNISONE 20 M20 M1 PO (07:36)
[2020-10-30] MEDS ORDERED: XARELTO10 MG PO (07:36)
--- NOTE | 2020-10-30 11:34 | NUR ---
DISCHARGE NOTE: SW reviewed chart and spoke with nursing and attending physician. Pt is medically stable for discharge back to [facility] today. TORRES faxed finalized discharge orders/summary to the facility for review. TORRES notified [facility] in admissions, who confirmed they received the ppwk and can accept pt back today. W/c van transportation scheduled for [id number] per facility's arrangements. TORRES left voice message for pt's son, Dennys ([phone]) and Parmjit ([phone]) to notify of discharge time. Nursing provided with number to call report. Chart copy requested. No additional SW needs identified at this time, but is available to assist should needs arise.
--- NOTE | 2020-10-30 13:48 | NUR ---
ASSUMED PATIENT CARE AT 0700. ALERT. TOLERATED DIET.ABLE TO FINISH 100% MEAL. CALL JESSICANTE AT [phone] TO GIVE REPORT NO ONE ANSWER THE PHONE. MASSAGE LEFT AT [phone]. Patient left at [phone].
--- NOTE | 2020-10-30 15:43 | NUR ---
TORRES was notified by [facility] at [facility] that pt's discharge orders state pt to receive meds through tube. Facility needing clarification if pt has peg tube in place. TORRES spoke with pt's nurse, who states pt does not have a peg tube. Pt may have had one in the past. TORRES faxed RD assessment, ST eval and admission history to [facility] for review. Documentation states pt does not have a peg tube in place. TORRES is following to assist as needed with discharge planning.
== END 2020-10-30 13:51 | DRG 871 ==
LOC: ER 16:08 → 3W 18:03 → EROBS 18:03 → 3W 18:39 → EDBD 10-30 13:51
PROVIDERS: Emergency Medicine; Internal Medicine; ADMIT Internal Medicine; ATTEND Internal Medicine
PROC: B548ZZA Ultrasonography of Superior Vena Cava, Guidance (ICD-10-PCS; principal; 2020-10-27)
PROC: 02HV33Z Insertion of Infusion Device into Superior Vena Cava, Percutaneous Approach (ICD-10-PCS; principal; 2020-10-27)
DX: A41.89 Other specified sepsis (principal); U07.1 COVID-19; R65.21 Severe sepsis with septic shock; E43 Unspecified severe protein-calorie malnutrition; J12.82 Pneumonia due to coronavirus disease 2019; J96.90 Respiratory failure, unspecified, unspecified whether with hypoxia or hypercapnia; N39.0 Urinary tract infection, site not specified; Z68.1 Body mass index [BMI] 19.9 or less, adult; I10 Essential (primary) hypertension; E87.5 Hyperkalemia; D64.9 Anemia, unspecified; E83.39 Other disorders of phosphorus metabolism; E03.9 Hypothyroidism, unspecified; Z79.01 Long term (current) use of anticoagulants; Z79.899 Other long term (current) drug therapy; Z88.8 Allergy status to other drugs, medicaments and biological substances; I69.320 Aphasia following cerebral infarction
CPT/HCPCS: 10779; 10879; 27000

== ENCOUNTER 2020-11-06 09:13 | Inpatient (IN) | payer OTHER ==
[2020-11-06] VITALS (31 sets, daily range): BP systolic 79–124; BP diastolic 48–74
[~2020-11-06] VITALS: Ht 160 cm; Wt 43.4 kg
[~2020-11-06 09:13] MED LIST changes: +LEVO-T25 MCG PO; +LEVOFLOXACIN500 MG PO; +MYRBETRIQ25 MG PO; +NUEDEXTA 20-101 EACH PO; +PREDNISONE 20 M20 M1 PO; +SUPER THERAVIT1 EACH PO; +XARELTO10 MG PO
[2020-11-06 10:04] LABS: HEMATOCRIT 38.8 % (37.0-47.0); HEMOGLOBIN 12.3 gm/dL (12.0-15.0); MCHC 31.6 g/dL (28.0-37.0); MCV 85.5 fL (80.0-100.0); PLATELET COUNT 379 thou/uL (150-400); RBC 4.53 mil/uL (4.20-5.00); WBC 25.9 thou/uL (4.0-11.0)
[2020-11-06 10:22] LABS: URINE BILIRUBIN NEGATIVE (Negative); URINE BLOOD NEGATIVE (Negative); URINE GLUCOSE-RANDOM* NEGATIVE (Negative); URINE KETONES NEGATIVE (Negative); URINE NITRITE-REFLEX NEGATIVE (Negative); URINE PROTEIN (DIPSTICK) 1+ (Negative); URINE SPECIFIC GRAVITY 1.025 (1.005-1.035)
[2020-11-06 10:25] LABS: URINE CLARITY HAZY; URINE COLOR AMBER; URINE LEUKOCYTES-REFLEX 1+ (Negative)
[2020-11-06 10:31] LABS: CALCIUM 9.6 mg/dL (8.5-10.1); CREATININE 1.1 mg/dL (0.6-1.0)
[2020-11-06 10:42] LABS: WBC CLUMPS Moderate (None Seen)
[2020-11-06 10:43] LABS: MUCUS >6 Heavy strn/LPF (None Seen); SQUAMOUS 4-10 Moderate /LPF (0-3)
[2020-11-06 10:44] LABS: BACTERIA-REFLEX 1-9 Few /HPF (None Seen); CASTS None Seen /LPF (None Seen)
[2020-11-06 10:45] LABS: CRYSTALS None Seen /LPF (None Seen); URINE RBC 0-2 Rare /HPF (0-2); URINE WBC-REFLEX 6-15 Few /HPF (0-5)
[2020-11-06 11:29] LABS: ABSOLUTE NEUTROPHILS 22.5 thou/uL (1.4-8.2); METAMYELOCYTES 1 %; MYELOCYTES 1 %
[2020-11-06 11:30] LABS: ANISOCYTOSIS SLIGHT
[2020-11-06 11:43] LABS: BE(vivo) 2.9 mmol/L (-2 to +3); HCO3 26.8 mmol/L (22.0-26.0); PCO2 38.7 mmHg (35.0-45.0); PO2 68.9 mmHg (80.0-100.0); pH 7.459 (7.360-7.450); sO2 94.7 % (92.0-98.0)
[2020-11-06] MEDS ORDERED: VITCB500GO PO (12:17)
[2020-11-06] MEDS ORDERED: ZINC SULFATE220 MG PO (12:19)
--- NOTE | 2020-11-06 12:48 | EKG ---
[facility] [place] [address] ELECTROCARDIOGRAM REPORT Name: LUIS ENRIQUE FLETCHER [id number] Admission: 11/06/20 Attend Phys: Discharge: Date of : [birth year] Report #: [id number] [facility] ED Test Date: 2020-11-06 Test Time: 09:55:42 Pat Name: LUIS ENRIQUE FLETCHER Department: Room: Gender: F Middle Stitcher: javed black : 1946-03-31 Requested By: Jeny Pérez Order Number: [id number] MD: Parag Spencer Measurements Intervals [place] Rate: 122 P: 71 MD: 130 QRS: 49 QRSD: 65 T: 40 QT: 338 QTc: 482 Interpretive Statements Sinus tachycardia Paired ventricular premature complexes LAE, consider biatrial enlargement Probable anteroseptal infarct, old Compared to ECG 10/24/2020 16:14:16 Ventricular premature complex(es) now present Myocardial infarct finding now present Electronically Signed On 11-06-2020 12:48:05 GENERAL ENGINEERING TEACHER by Parag Spencer [email or web address] <ELECTRONICALLY SIGNED> By: Parag Spencer MD, [facility] 11/06/20 1248 0955 0955 Parag Spencer MD, FAC /EPI
--- NOTE | 2020-11-06 13:11 | NUR ---
VAT CONSULTED FOR PICC LINE, PT'S LABS ,MEDS,HX,ORDER AND CONSENT VERIFIED. GIULIA BRACHIAL WAS WIDELY PATENT WITH USG MEASURED 42%. DL PICC TRIMMED TO 40CM, HAD DIFFICULTY DROPPING LINE, HAD TO REPOSITION PT'S HOB TO GET PICC TO DROP INTO SVC. PICC TRIMMED TO 40CM INSERTED TO 1CM EXTERNAL. CXR VERIFIED PICC IN UPPER SVC, RELEASED FOR IMMEDIATE USE PER PROTOCOL TO RN. PT TOLERATED WELL
[2020-11-06 15:09] LABS: BE(vivo) 1.2 mmol/L (-2 to +3); HCO3 27.3 mmol/L (22.0-26.0); PCO2 49.7 mmHg (35.0-45.0); PO2 106.8 mmHg (80.0-100.0); pH 7.357 (7.360-7.450); sO2 97.6 % (92.0-98.0)
--- NOTE | 2020-11-06 19:49 | NUR ---
RECEIVED FROM ER, ADMITTED TO ICU #[id number] AT 1554 WITH DIAGNOSIS: HYPOXEMIA, RESP FAILURE. SR, TOLERATING BIPAP, WHISPERS TO VERBALIZE PT NAME AND PLACE, WEAK STATION WORKER WITH ALL EXTREMITIES, GENERALIZED WEAKNESS, TOLERATING BIPAP WITH LUNGS COARSE IN UPPER LOBES AND DIMINISHED IN VANNESSA LOWER LOBES. UNABLE TO TOLERATE PO INTACT AT THIS TIME RELATED TO RESP STATUS. BRIEF INTACT, PRAFO BOOTS APPLIED. BORDERED FOAM DRESSING INTACT ON COCCYX. CALLED [facility]J FLETCHER- SON TO LEAVE BRIEF MESSAGE OF PT'S HOSPITALIZATION. ALSO, CALLED [facility]O FLETCHER- SON TO LEAVE BRIEF MESSAGE OF PT'S HOSPITALIZATION. NO CALL RETURNED.
[2020-11-07] VITALS (46 sets, daily range): BP systolic 81–137; BP diastolic 46–82
[2020-11-07 05:55] LABS: HEMATOCRIT 28.9 % (37.0-47.0); MCH 28.1 pg (26.0-34.0); MCHC 32.3 g/dL (28.0-37.0); RBC 3.32 mil/uL (4.20-5.00); RDW 16.3 % (10.5-14.5); WBC 19.5 thou/uL (4.0-11.0)
[2020-11-07 06:06] LABS: HEMOGLOBIN 9.3 gm/dL (12.0-15.0)
[2020-11-07 06:07] LABS: CALCIUM 8.8 mg/dL (8.5-10.1); CREATININE 0.6 mg/dL (0.6-1.0); POTASSIUM 3.4 mmol/L (3.5-5.1)
--- NOTE | 2020-11-07 06:10 | NUR ---
ASSUMMED PT CARE AT 1900. PT WAS ON BIPAP AND WAS CONFUSED, MUMBLING INCOMPREHENISBLE WORDS. AROUND MIDDNIGHT PT WAS PLACED ON 4LNC AND WAS MORE ORIENTED TO SELF AND SITUATION. WOUND PICTURES TAKEN AND FILED AND HEART FOAM PLACED ON BOTTOM. AROUND 5AM, PT HAD NOT VOIDED SO BLADDER SCAN DONE; SHOWED >454ML OF URINE ON, EVELYN MELTON NOTIFIED, ORDERS FOR MALDONADO RECIEVED AND IMPLMENTED. PT DRAINED 225 OUT INTO HER MALDONADO BAG AND LEAKED SOME MORE AMOUNT OF URINE AROUND HER MALDONADO. MALDONADO BALLOON QUANTITY RECHECKED AND CONFIRM 10ML OF NS IN THE BALLON. PT IS STABLE SO FAR, ALSO STARTED HER ON NS AT 75ML/HR. WILL CONTINUE TO MONITOR PER POC
--- NOTE | 2020-11-07 11:04 | HC ---
[facility] [place] [address] CONSULTATION Name: LUIS ENRIQUE FLETCHER Room #: 244-P ADM IN M.R.#: [id number] Admission: 11/06/20 Attend Phys: Rodolfo Murguia MD Discharge: Date of : 43 Report #: [id number] THIS REPORT FOR: cc: Nat Lee MD, Ramilo MD Barry,Sohan Arteaga MD ~ DATE OF SERVICE: 11/06/2020 INFECTIOUS DISEASE CONSULTATION ATTENDING PHYSICIAN: Dr. Murguia. REASON FOR EVALUATION: Pneumonitis, complicated by respiratory failure. HISTORY OF SUBJECTIVE: Chart reviewed, patient examined. This is a 74-year-old woman with history of stroke, right-sided hemiparesis and aphasia who I am familiar with, was hospitalized earlier this month with confusion, has been confirmed to have a COVID positive test, dating back to latter part of August, at the facility was noted to be progressively weak, was felt to be more dyspneic and was found to be hypoxic with the mid 80s on room air. Supplemental oxygen 2 liters increased to 96%. Due to her tenuous situation, she was admitted. She is in the intensive care unit. Chest x-ray does show right lung pneumonia. Urinalysis 6-15 white cells, only 1-9 bacteria. Lactic acid 3.0. White count elevated at 25.9. She was empirically placed on combination therapy with vancomycin, Zosyn and Levaquin. She is currently on BiPAP at 40%. ALLERGIES: ASPIRIN, MORE TYPICAL OF ADVERSE DRUG EFFECT WITH UPSETTING HER STOMACH. CURRENT MEDICATIONS: Include levofloxacin, multivitamin, ascorbic acid, tamsulosin, zinc, levothyroxine, vancomycin, Zosyn, famotidine, rivaroxaban, methylprednisolone, acetaminophen. PAST MEDICAL HISTORY: As noted above, previous stroke with paresis as well as aphasia, history of hypertension, recent COVID hospitalization with pneumonitis. SOCIAL HISTORY: Available in chart. FAMILY HISTORY: Available in chart. REVIEW OF SYSTEMS: Not obtainable. PHYSICAL EXAMINATION: GENERAL: She appears chronically ill and undernourished, hjyc-nu-vqhtxtut distress. [facility] [address] [place] [address] CONSULTATION Name: LUIS ENRIQUE FLETCHER Room #: 244-P [facility] IN ..#: [id number] Admission: 11/06/20 Attend Phys: Rodolfo Murguia MD Discharge: Date of : 43 Report #: [id number] VITAL SIGNS: Temperature 97.5, pulse 117, respirations 21, blood pressure 101/60. SKIN: Warm, dry, no rashes. HEENT: BiPAP in place. NECK: Supple. LUNGS: Scattered coarse breath sounds bilaterally. HEART: Tachycardic, regular, soft systolic murmur. ABDOMEN: Soft, no apparent tenderness, no peritoneal signs. GENITOURINARY AND RECTAL: Deferred. LABORATORY DATA: Coronavirus PCR is still positive. ABGs: pH 7.357, pCO2 of 49.7, pO2 of 106.8. FiO2 of 40%. Brief followup lactic acid is 1.9 after initial one was 3.0. CBC: White count 25.9, H and H 12.3 and 38.8, platelets of 379. Electrolytes: Sodium 138, potassium 4.0, chloride 100, bicarbonate 27, anion gap of 11, BUN and creatinine 31 and 1.1, glucose of 219. ASSESSMENT: Pneumonitis. The patient is certainly at risk for aspiration. She has high degree of medical disease burden. She had a previous stroke, recent COVID-19 infection. I think this is not likely a relapse. We will continue combination broad-spectrum antibacterial at this point, I am not hopeful she will be able to expectorate sputum and see how she does clinically, try to optimize her nutritional status. Monitor expectantly at risk for additional complications. <ELECTRONICALLY SIGNED> By: Sohan Shanks MD 11/07/20 1104 1729 1856 Sohan Shanks MD /nt
--- NOTE | 2020-11-07 12:05 | NUR ---
WOUND CONSULT; THE PATIENTS AREA OF CONCERN IS THE COCCYX AREA. UPON ASSESSMENT IS APPEARS TO BE A RESOLVING PRESSURE INJURY WHICH IS SUPERFICIAL. CURRENTLY THERE IS SCARRING AND SMALL AREAS TO THE BUTTOCKS BIALTERALLY. NO S/S OF INFECTION. RECOMMENDATIONS; -APPLY ZGUARD AND COVER WITH A SACRAL FOAM. -TURN PATIENT Q2H DISCUSSED WITH RONI
--- NOTE | 2020-11-07 12:42 | NUR ---
PT IS FROM [facility] FAXED CLINICAL UPDATE SPOKE WITH PELON IN ADM SHE RECEIVED UPDATE AND SAID PT IS LTC AND WAS RECEIVING THERAPY. DP TO FOLLOW.
--- NOTE | 2020-11-07 13:46 | NUR ---
chart review. noted pt from [facility], updates to be sent to facility, she was getting some therapy at [facility]. she has assist with all adl's, wheel chair, lift device if needed, hospital bed, shower bench, and o2 if needed. cm visited with jeffrey benitez via phone call, intro to cm and dcp. no question or concerns voiced. dcp [facility].
--- NOTE | 2020-11-07 19:28 | NUR ---
swallow study completed, PT/0T and Anne Michele, director of career services all present to see pt. spoke with Dennys Menjivar, son on phone when he inquired regarding pt status. Dennys Menjivar, updated as designated visitor. he was present to see pt, again updated him on her status. pt responded by greeting him with a huge smile over and over again.
[2020-11-08] VITALS (30 sets, daily range): BP systolic 90–128; BP diastolic 53–83
[2020-11-08 01:59] LABS: ABSOLUTE NEUTROPHILS 18.8 thou/uL (1.4-8.2); HEMATOCRIT 27.2 % (37.0-47.0); HEMOGLOBIN 8.7 gm/dL (12.0-15.0); LYMPHOCYTES 1.7 % (24.0-44.0); MCH 27.7 pg (26.0-34.0); MCV 86.7 fL (80.0-100.0); MONOCYTES 2.5 % (1.0-8.0); PLATELET COUNT 272 thou/uL (150-400); POLYS 95.8 % (36.0-66.0); RBC 3.14 mil/uL (4.20-5.00); RDW 16.5 % (10.5-14.5); WBC 19.6 thou/uL (4.0-11.0)
[2020-11-08 02:12] LABS: ALBUMIN 1.6 g/dL (3.4-5.0); CALCIUM 8.6 mg/dL (8.5-10.1); CREATININE 0.6 mg/dL (0.6-1.0); MAGNESIUM 1.8 mg/dL (1.8-2.4); POTASSIUM 3.5 mmol/L (3.5-5.1); TOTAL BILIRUBIN 0.3 mg/dL (0.2-1.0); TOTAL PROTEIN 5.7 g/dL (6.4-8.2)
--- NOTE | 2020-11-08 08:41 | NUR ---
Dennys Menjivar- son called to inquire regarding pt status. updated including pt making one word statements, down to 1L/nc and since pt pulling off gown, necessary wires, tubing, iv and attempting to pull out her picc line, mehul mitts were placed for her safety. he verbalized understanding.
--- NOTE | 2020-11-08 14:25 | NUR ---
chart review. noted possible move out of icu to another unite. noted she was trying to pull at her lines, has bilat soft mitts on. when closer to dc need covid test if been close to weeks time that last on was completed. dcp back to [facility] radha [facility] # [phone], fax # [phone], she was getting some therapy at [facility] as well. will cont following as needed for dc needs.
--- NOTE | 2020-11-08 18:40 | NUR ---
portable sao2 monitor with sats reading 96-100% consistently. occasional coughs when consuming meals, non productive loose cough. Dr. Murguia present, updated on pt status including low potassium, low urine output and unable to take in fluids. iv fluids started per order.
[2020-11-09 03:33] VITALS: BP 110/57
--- NOTE | 2020-11-09 04:55 | NUR ---
ASSUMED PT CARE AT 1900. VSS. PT AWAKE AND ALERT TO SELF. PT ON ROOM AIR NOW, SATS OF 98%. PT IS STABLE, NO ISSUES, PRESSURE ULCER DRESSING CHANGED THIS SHIFT, BATH THIS SHIFT WELL. PT REMIANS STABLE, WILL CONTINUE TO MONITOR.
[2020-11-09 05:42] LABS: HEMATOCRIT 24.4 % (37.0-47.0); HEMOGLOBIN 7.8 gm/dL (12.0-15.0); MCH 27.8 pg (26.0-34.0); MCHC 32.1 g/dL (28.0-37.0); MCV 86.5 fL (80.0-100.0); RBC 2.82 mil/uL (4.20-5.00); RDW 16.3 % (10.5-14.5); WBC 16.4 thou/uL (4.0-11.0)
[2020-11-09 05:51] LABS: CALCIUM 8.2 mg/dL (8.5-10.1); CREATININE 0.6 mg/dL (0.6-1.0); MAGNESIUM 1.6 mg/dL (1.8-2.4); POTASSIUM 3.9 mmol/L (3.5-5.1)
[2020-11-09 07:33] VITALS: BP 123/60
[2020-11-09 11:34] VITALS: BP 130/67
--- NOTE | 2020-11-09 13:16 | NUR ---
WOUND CARE F/U; THE WOUNDS ARE UNCHAGED. THE WOUND IS OF THE COCCYX. APPROX 7 X 7. THERE IS NECROSIS PRESENT WHICH MAKES IT UNSTAGEABLE. SOME ERYTHEMA TO PERIWOUND. RECOMMENDATIONS; CONSULT WOUND CARE PHYSICIAN. DISCUSSED WITH RN
--- NOTE | 2020-11-09 13:24 | NUR ---
spoke with admissions at [facility]. Patient with prev COVID positive. She will not need a new test as she is within her 90 days of positive covid testing. Patient with mitt restraints due to confusion and pulling on lines and IVs. admissions reports patient does not have to be restraint free for any length of time for discharge. Reports due to need for hospital restraint patient likely with not have IVs at [facility]. [facility] following updated possible weekend discharge. If dc over weekend. Obtain chart copy. Call [facility] [phone] or admissions at [phone]. They will arrange transport. Notify son
--- NOTE | 2020-11-09 14:50 | NUR ---
FAXED CLINICAL UPDATES TO [facility]. WILL CONFIRM WITH [facility]TAKE THAT THEY RECEIVED. [facility] P [phone]; FAX [phone]
[2020-11-09 15:33] VITALS: BP 140/74
--- NOTE | 2020-11-09 16:10 | NUR ---
ASSUMED CARE AT 0700. PATIENT PROGRESSING TOWARDS THE PLAN OF CARE EVIDENCED BY PATIENT'S DECREASED OXYGEN NEEDS AND LACK OF NEED OF LEVOPHED OR IV CARDIZEM. PATIENT'S DAUGHTER VISITED AT 0930 AND IS CURRENTLY IN PATIENT'S ROOM OF THE WRITING OF THIS NOTE. TRANSFER ORDERS TO CCU ARE IN PER DR. HINES.
[2020-11-09 19:33] VITALS: BP 119/67
--- NOTE | 2020-11-09 21:22 | NUR ---
Report given to 4W RN at 1495. Patient to be tranferred to room 454. VSS remains on room air, mitten restraints still in place. Patient is progressing towards goals.
--- NOTE | 2020-11-10 02:46 | NUR ---
PT TRANSFER FROM THE ICU TO THE UNIT AT 2200.PT IS ALERT AND ORIENTED TO SELF ONLY.PT IS ON BEDREST.PT IS ON ROOM AIR.PT IS ON TELE NSR.PT HAS RT SIDED WEAKNESS AND APHASIA.PT HAS A MALDONADO CATHETER DD IN PLACE .IV ACCESS ON LT UA PIC LINE DOUBLE LUMEN WITH 1/2NS 20MEQ KCL AT 80CC/HR.PT HAS MITTEN RESTRAINTS IN PLACE TO PREVENT PT FROM PULLING OF IV .PT IS ON PUREED DIET AND NEEDS ASSISTANCE WITH FEEDING AND TAKE MEDS CRUSHED IN APPLE SAUCE OR PUDDING.WILL CONTINUE TO MONITOR
[2020-11-10 08:29] VITALS: BP 117/57
--- NOTE | 2020-11-10 17:14 | NUR ---
Assumed pt care this am, pt is bed bound and was turned every 2 hours. Wound care and dressing change done. Had a small formed bm. FC in place drainig yellow urine. Medications are taken crushed given with pudding, pt is a feeder and total care, small frequent feedings were done through out the shift.On telemetry running NSR. Diet and medications are tolerated well. VS stable. Son called and update was given, requested that MD call him as well, jeffrey Noyola is to lvisit tomorrow am,. POC followed with no signs or verbalizations of distress noted.
[2020-11-10 18:01] VITALS: BP 154/73
[2020-11-10 20:53] VITALS: BP 149/98
--- NOTE | 2020-11-11 03:35 | NUR ---
ASSUMED CARE OF PT AT SHIFT CHANGE. PT IS ALERT PUT ONLY ORIENTED TO PERSON. NEEDS MUST BE ANTICIPATED. FALL RPECAUTION IN PLACE. PT TURNED Q2H. MALDONADO IN PLACE AND PATIENT. CLEAR, YELLOW URINE NOTED. MALDONADO IRRIGATED DUE TO LEAKING. PT WAS PAYAM TO GET COMFORTABLE AND SLEEP PART OF THE SHIFT. VSS AND NO S/S OF ACUTE DISTRESS. WILL CONTINUE TO MONITOR.
[2020-11-11 08:20] VITALS: BP 134/68
[2020-11-11 15:32] VITALS: BP 124/83
--- NOTE | 2020-11-11 19:39 | NUR ---
Asumed pt care this am, vs stable , Q2 turns done. Pt is a feeder, diet and medicationms tolerated well. POC followed with no signs or verbalizations of distress noted, endorsed to the night nurse wound care not done during the day.
[2020-11-11 19:44] VITALS: BP 115/78
[2020-11-12 04:09] LABS: CALCIUM 8.1 mg/dL (8.5-10.1); CREATININE 0.6 mg/dL (0.6-1.0); POTASSIUM 3.7 mmol/L (3.5-5.1)
[2020-11-12 08:02] VITALS: BP 126/74
[2020-11-12] MEDS ORDERED: PREDNISONE 20 M20 M1 PO (13:21)
[2020-11-12] MEDS ORDERED: SSD CREAM 1% 5050 GM TOP (13:21)
--- NOTE | 2020-11-12 14:05 | NUR ---
CARE TEAM INDICATED THAT PT IS MEDICALLY STABLE TO DISCHARGE BACK TO [facility] THIS DAY. ORDERS FAXED TO COMM[facility]ITY. CHART COPY MADE. CM CALLED AND NOTIFIED PT'S SON PJ HE IS AWARE AND AGREEABLE. NURSE GIVEN NUMBER FOR REPORT. NO OTHER CM INTERVENTION INDICATED. CASE CLOSED.
--- NOTE | 2020-11-12 16:35 | HC ---
[facility] [place] [address] CONSULTATION Name: LUIS ENRIQUE FLETCHER Room #: 454-P ADM IN M.R.#: [id number] Admission: 11/06/20 Attend Phys: Rodolfo Murguia MD Discharge: Date of : 43 Report #: [id number] THIS REPORT FOR: cc: Nat Lee MD, Ramilo MD Althoff,Henry Gibson MD ~ DATE OF SERVICE: 11/10/2020 CHIEF COMPLAINT: Sacral pressure ulceration. HISTORY OF PRESENT ILLNESS: This is a 75-year-old female patient who was admitted to the hospital in early October with respiratory failure and septic shock. She has had recent COVID-19 infection. She has been readmitted for increasing respiratory difficulty. She has able to answer a few questions with just a simple yes or no. She denies any pain at this time. She seems to be unaware of the sacral ulceration. 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 She has had previous PEG tube placed in 2015, but no longer has a PEG tube at this time. SOCIAL HISTORY: Negative for alcohol or tobacco use. FAMILY HISTORY: Unknown. REVIEW OF SYSTEMS: Unobtainable due to the patient's condition. MEDICATIONS: Include acetaminophen, ascorbic acid, famotidine, levothyroxine, Myrbetriq, prednisone, Xarelto, zinc sulfate. ALLERGIES: ASPIRIN. PHYSICAL EXAMINATION: VITAL SIGNS: At this time include temperature 36.4, pulse 73, respiratory rate 17, blood pressure 117/57. GENERAL: This is a chronically ill-appearing female patient who appears to be in no obvious distress. HEENT: Head, normocephalic. NECK: Supple. LUNGS: Diminished. HEART: Regular rhythm. ABDOMEN: Soft, nontender. EXTREMITIES: Sacral region demonstrates a sacral pressure ulceration, covered with fibrin and slough. It is not overtly infected. I am not able to see the [facility] [address] [place] [address] CONSULTATION Name: LUIS ENRIQUE FLETCHER Room #: 454-P [facility] [place] ..#: [id number] Admission: 11/06/20 Attend Phys: Rodolfo Murguia MD Discharge: Date of : 44 Report #: [id number]. It is an unstageable. Lower extremities, trace edema noted. CLINICAL IMPRESSION: 1. Unstageable sacral pressure ulceration. 2. Recurrent chronic hypoxic respiratory failure. 3. Hypertension. 4. Previous cerebrovascular accident with right-sided weakness and aphasia. 5. Severe protein-calorie malnutrition with albumin of 1.6. LABORATORY DATA: Sodium 146, potassium 3.5, chloride 112, CO2 of 29, BUN 5, creatinine 0.6, glucose 145, total protein 5.7. White blood cell count 16.4 with hemoglobin of 7.8. RECOMMENDATIONS: At this point in time, we will recommend a topical Silvadene and Xeroform followed by a Mepilex to the sacral region daily. She will need low air loss mattress, q.2 hour turning and positioning. She may need surgical debridement. I do not know that she is a good candidate for an operative procedure at this point in time. We will see how we do with local bedside care at present. We will recommend PRAFO boots for pressure prophylaxis. She will need aggressive nutritional support if aggressive care is desired, certainly consideration of a PEG tube would be appropriate. <ELECTRONICALLY SIGNED> By: Henry Horowitz MD 11/12/20 1635 1219 1523 Henry Horowitz MD /nt
--- NOTE | 2020-11-12 16:59 | NUR ---
PT A&O TO SELF, VSS, C/O PAIN USING FACES AND YES/NO ANSWER. PATIENT PUREED DIET AND MAGIC CUP. PATIENT STILL HAD COUGH WHEN EATING, IF I ASKED HER TO SLOW DOWN AND TAKE TIME SHE HAD NO COUGH. LUNGS DIM, ROOM AIR. PATIENTS MALDONADO REMOVED AND PICC REMOVED. PATIENT CAN ANSWER YES/NO QUESTIONS, APHASIC. PATIENT REPOSITIONED OFTEN, PRAFO BOOTS ON. WOUND CARES COMPLETED AND DC PHOTO TAKEN. PATIENT SR ON TELE, AND TELE BOX REMOVED AT DC. PATIENT WILL BE ON PO ANTIBIOTICS PER DOCTORS NOTE. PATIENT DISCHARGED TO [facility]. NO SIGNS OF DISTRESS. ALL BELONGINGS WITH PATIENT.
== END 2020-11-12 16:54 | DRG 871 ==
LOC: ER 09:13 → EDBD 13:05 → ICU 13:05 → EROBS 13:05 → ICU 15:38 → 4W 11-09 22:00
PROVIDERS: Emergency Medicine; Internal Medicine Pulmonary Disease; Specialist; ADMIT Internal Medicine; ATTEND Internal Medicine
PROC: B548ZZA Ultrasonography of Superior Vena Cava, Guidance (ICD-10-PCS; principal; 2020-11-06)
PROC: 5A09357 Assistance with Respiratory Ventilation, Less than 24 Consecutive Hours, Continuous Positive Airway Pressure (ICD-10-PCS; principal; 2020-11-06)
PROC: 02HV33Z Insertion of Infusion Device into Superior Vena Cava, Percutaneous Approach (ICD-10-PCS; principal; 2020-11-06)
DX: A41.9 Sepsis, unspecified organism (principal); E43 Unspecified severe protein-calorie malnutrition; G92 Toxic encephalopathy; J96.21 Acute and chronic respiratory failure with hypoxia; J69.0 Pneumonitis due to inhalation of food and vomit; U07.1 COVID-19; I69.351 Hemiplegia and hemiparesis following cerebral infarction affecting right dominant side; N39.0 Urinary tract infection, site not specified; Z68.1 Body mass index [BMI] 19.9 or less, adult; I10 Essential (primary) hypertension; E03.9 Hypothyroidism, unspecified; L89.150 Pressure ulcer of sacral region, unstageable; R53.81 Other malaise; F03.90 Unspecified dementia, unspecified severity, without behavioral disturbance, psychotic disturbance, mood disturbance, and anxiety; E86.0 Dehydration; R65.20 Severe sepsis without septic shock; D63.8 Anemia in other chronic diseases classified elsewhere; Z66 Do not resuscitate; Z79.01 Long term (current) use of anticoagulants; Z74.01 Bed confinement status; I69.320 Aphasia following cerebral infarction; Z88.8 Allergy status to other drugs, medicaments and biological substances; Z79.899 Other long term (current) drug therapy
CPT/HCPCS: 10045; 10078; 27000

== ENCOUNTER 2020-11-14 17:48 | Inpatient (IN) | payer OTHER ==
[~2020-11-14] VITALS: Ht 160 cm; Wt 46.3 kg
--- NOTE | ~2020-11-14 | HC ---
[facility] [place] [address] CONSULTATION Name: LUIS ENRIQUE FLETCHER Room #: 451-P ADM IN M.R.#: [id number] Admission: 11/15/20 Attend Phys: Rodolfo Murguia MD Discharge: Date of : 44 Report #: [id number] THIS REPORT FOR: cc: Nat Lee MD,Nat Osman,Gabino De Anda MD ~ DATE OF SERVICE: 11/15/2020 WOUND CARE CONSULTATION PERSONAL PHYSICIAN: Dr. Lee. CHIEF COMPLAINT: Sacral decubitus ulcer. HISTORY OF PRESENT ILLNESS: This is a 75-year-old black female with a history of recent hospitalization for COVID-19 pneumonitis and associated pneumonia. The patient was discharged to a skilled facility recently and now is back for tachycardia and sepsis. The patient has a known stage 4 decubitus ulcer to the sacrococcygeal region. Family in the past has refused a PEG tube and diverting colostomy. The patient herself is essentially nonverbal and unable to give any history whatsoever. PAST MEDICAL HISTORY: Significant for the recent COVID-19 pneumonitis, history of pneumonia, septic shock, CVA with right left-sided hemiparesis and protein-calorie malnutrition. CURRENT MEDICATIONS: Multiple, I reviewed the patient's medication list. DRUG ALLERGIES: ASPIRIN. SOCIAL HISTORY: The patient is currently residing in a skilled facility. FAMILY HISTORY AND REVIEW OF SYSTEMS: Unobtainable because of the patient's nonverbal status. PHYSICAL EXAMINATION: VITAL SIGNS: Temperature 36.7, pulse 108, respirations 18, and BP 127/79. GENERAL: This is an awake, but not alert black female who is in no obvious distress. HEENT: Normocephalic, atraumatic. Mucous membranes are dry. Pupils are round. Sclerae are white. NECK: Without JVD. LUNGS: Slight diminished breath sounds heard throughout with rhonchi in the base. Occasional scattered wheeze. HEART: Tachycardic. [facility] [address] [place] [address] CONSULTATION Name: LUIS ENRIQUE FLETCHER Room #: 451-[facility] IN ..#: [id number] Admission: 11/15/20 Attend Phys: Rodolfo Murguia MD Discharge: Date of : 44 Report #: [id number] ABDOMEN: Soft, nontender. EXTREMITIES: The patient has decreased movement of the right upper and lower extremity. Bilateral heels are intact. Evaluation of sacrococcygeal region reveals stage 4 decubitus ulcer, which is slough filled and has a moderate foul odor of serosanguineous drainage. Periwound is mildly macerated. There is palpable bone in the base, but no evidence of obvious exposed bone. NEUROLOGIC: Cranial nerves 2-12 grossly intact. The patient has a right left-sided hemiparesis. LABORATORY DATA: White count is 8.9, hemoglobin 9.3, BUN 8, creatinine 0.5, and albumin 1.9. IMPRESSION: 1. Stage 4 sacrococcygeal decubitus ulcer. 2. Severe protein-calorie malnutrition with albumin 1.9. 3. Generalized debility. 4. Sepsis. 5. Hypertension. PLAN: At this time, we will place Dakin's wet to dry dressings b.i.d. and p.r.n. Put the patient on low air loss mattress, having however, turned every 2 hours. We will use heel protection boots at all times. We will attempt to maximize the patient's protein supplementation after a video swallow to evaluate for her possible dysphagia. I still feel the patient would be best served with a PEG tube as well as a diverting colostomy if we are going to try to be aggressive in trying to heal the sacral ulcer. We will discuss with the family. We will continue all other current medications at this time. By: 0930 1704 Gabino Osman MD /nt
--- NOTE | ~2020-11-14 | EEG ---
[facility] [place] [address] ELECTROENCEPHALOGRAM Name: LUIS ENRIQUE FLETCHER Room #: 451-P DIS IN M.R.#: [id number] Admission: 11/15/20 Attend Phys: Rodolfo Murguia MD Discharge: 11/19/20 Date of : 43 Report #: [id number] THIS REPORT FOR: //name// DATE OF SERVICE: 11/18/2020 This patient is being evaluated for the possibility of tremor. EEG was done by placing the electrode by standard 10-20 system of electrode placement. Both referential and sequential montages were used for recording, a lot of artifact is present in the EEG is virtually uninterpretable. It is slow and poorly formed. I do not think there is a prominent epileptiform activity, but the EEG is masked by so much artifact that is impossible to tell that. IMPRESSION: Suboptimal EEG because of the patient's inability to cooperate. EEG is abnormal because it is intermixed with theta range slowing on both sides. That finding can be consistent with encephalopathy or dementia. Epileptiform activity is difficult to exclude although, I do not find any gross epileptiform activity, but EEG is so suboptimal that it is impossible to tell. Thank you very much for this referral. By: 1752 1184 Paul Duncan MD /nt
[~2020-11-14 17:48] MED LIST changes: +SSD CREAM 1% 5050 GM TOP; +VITCB500GO PO; +ZINC SULFATE220 MG PO
[2020-11-14 17:57] VITALS: BP 110/67
[2020-11-14 18:37] LABS: ABSOLUTE NEUTROPHILS 8.3 thou/uL (1.4-8.2); BASOPHILS 0.1 % (0.0-2.0); EOSINOPHILS 0.9 % (0.0-3.0); HEMATOCRIT 31.2 % (37.0-47.0); LYMPHOCYTES 3.1 % (24.0-44.0); MCH 27.8 pg (26.0-34.0); MCV 86.9 fL (80.0-100.0); MONOCYTES 5.1 % (1.0-8.0); PLATELET COUNT 253 thou/uL (150-400); POLYS 90.8 % (36.0-66.0); RBC 3.59 mil/uL (4.20-5.00); WBC 9.2 thou/uL (4.0-11.0)
[2020-11-14 18:42] LABS: ANION GAP 6 mmol/L (7-16); BUN 12 mg/dL (7-18); CALCIUM 8.4 mg/dL (8.5-10.1); CHLORIDE 94 mmol/L (98-107); CO2 29 mmol/L (21-32); CREATININE 0.7 mg/dL (0.6-1.0); GLUCOSE 189 mg/dL (74-106); POTASSIUM 3.7 mmol/L (3.5-5.1); SODIUM 129 mmol/L (136-145)
[2020-11-14 18:52] LABS: ALBUMIN 1.9 g/dL (3.4-5.0); SGOT 20 U/L (15-37); SGPT 16 U/L (14-59); TOTAL BILIRUBIN 0.2 mg/dL (0.2-1.0); TOTAL PROTEIN 6.1 g/dL (6.4-8.2); TROPONIN-I <0.06 ng/mL (<0.06)
[2020-11-14 19:14] LABS: URINE BILIRUBIN NEGATIVE (Negative); URINE BLOOD NEGATIVE (Negative); URINE CLARITY CLEAR; URINE COLOR YELLOW; URINE GLUCOSE-RANDOM* NEGATIVE (Negative); URINE KETONES NEGATIVE (Negative); URINE LEUKOCYTES-REFLEX NEGATIVE (Negative); URINE NITRITE-REFLEX NEGATIVE (Negative); URINE PROTEIN (DIPSTICK) NEGATIVE (Negative); URINE SPECIFIC GRAVITY 1.015 (1.005-1.035); URINE UROBILINOGEN 0.2 E.U./dl (0.2-1.0)
--- NOTE | 2020-11-14 22:43 | NUR ---
[facility] to d/c covid isolation per Silvia Contreras RN.
[2020-11-14 22:48] VITALS: BP 123/78
[2020-11-14 23:27] VITALS: BP 119/68
--- NOTE | 2020-11-15 03:42 | NUR ---
ASSUMED CARE OF PT FROM ED AT 2320HRS. PT IS ALERT BUT ONLY ORIENTED TO PERSON. FALL PRECAUTION IN PLACE. PT HAS EXPRESSIVE APHASIA AND IS DIFFICULT TO UNDERSTAND. ADMISSION COMPLETED WITH CHART REVIEW. PT IS UNABLE TO SIGN CONSENTS. PT IS TO BE NPO UNTIL SPEECH EVAL. SACRAL WOUND PIC TAKEN. SCD IN PLACE. ORDERS STARTED. PT WAS PAYAM TO GET COMFORTABLE AND SLEEP PART OF THE SHIFT. VSS AND NO S/S OF ACUTTE DISTRESS. WILL CONTINUE TO MONITOR.
[2020-11-15 05:10] LABS: HEMATOCRIT 28.8 % (37.0-47.0); HEMOGLOBIN 9.3 gm/dL (12.0-15.0); MCH 28.3 pg (26.0-34.0); MCHC 32.4 g/dL (28.0-37.0); MCV 87.6 fL (80.0-100.0); RBC 3.29 mil/uL (4.20-5.00); RDW 16.9 % (10.5-14.5); WBC 8.9 thou/uL (4.0-11.0)
[2020-11-15 05:27] LABS: CALCIUM 8.1 mg/dL (8.5-10.1); CREATININE 0.6 mg/dL (0.6-1.0); POTASSIUM 3.6 mmol/L (3.5-5.1)
[2020-11-15 05:36] VITALS: BP 127/70
--- NOTE | 2020-11-15 07:20 | EKG ---
[address] [place] [address] ELECTROCARDIOGRAM REPORT Name: LUIS ENRIQUE FLETCHER Room #: 451-P [facility] M.R.#: [id number] Admission: 11/14/20 Attend Phys: Rodolfo Murguia MD Discharge: Date of : 44 Report #: [id number] [facility] ED Test Date: 2020-11-14 Test Time: 18:06:51 Pat Name: LUIS ENRIQUE FLETCHER Department: Room: [facility] Gender: F Breast Buffer: CHALO : 1945 Requested By: Martha Kate Order Number: [id number] MD: Parag Spencer Measurements Intervals Reeders Rate: 138 P: 42 IL: 114 QRS: 50 QRSD: 64 T: 63 QT: 312 QTc: 473 Interpretive Statements Sinus tachycardia Probable left atrial enlargement ST elevation, consider inferior injury Compared to ECG 11/06/2020 09:55:42 ST (T wave) deviation now present Ventricular premature complex(es) no longer present Myocardial infarct finding still present Electronically Signed On 11-15-2020 7:20:02 HALL CLERK by Parag Spencer [email or web address] <ELECTRONICALLY SIGNED> By: Parag Spencer MD, FAC 11/15/20 0720 180 180 Parag Spencer MD, [facility] /EPI
[2020-11-15 07:35] VITALS: BP 121/77
[2020-11-15] MEDS ORDERED: XARELTO10 M1 PO (09:35)
--- NOTE | 2020-11-15 12:29 | NUR ---
ASSUMED PT CARE AROUND 0700. PT ALERT X ORIENTED TO SELF. ON ROOM AIR.INCONTINENT OF BB. IV RT AC/SALINE LOCKED. NPO UNTILL SPEECH EVAL.QX2 TURN. WOUND ON SACRAL AREA, COVERED WITH 4/4 GUAZE. TELE PT WITH SINUS RYTHM AND TACHY. BLD SUGAR CHECK Q X 6HRS. FALL PRECT IN PLACE. WILL CONT TO MONITOR.
--- NOTE | 2020-11-15 14:00 | NUR ---
Patient with recent inpatient stay at [facility]. Patient readmitted within 48 hours possible asp/pna. Patient admits from [facility]. Patient with dementia. spoke with son Dennys. He reports phys attempted to reach him but he was in class. He plans to call phys after class. Plan to keep [facility] updated Possbile pallative care pending discussion and family decision. Patient COVID positive in September.
[2020-11-15 19:08] VITALS: BP 105/55
--- NOTE | 2020-11-16 03:22 | NUR ---
ASSUMED CARE OF PT AT 1900HRS. PT ALERT BUT ONLY ORIENTED TO PERSON. FALL FALL PRECAUTION IN PLACE. WOUND CARE DONE PER ORDER. ABX TREATMNET CONTINUED. PT RAN SR/ST ON TELE. PT TURNED Q2-3H. PT IS INCONTINENT AND WAS CLEANED UP SEVERAL TIMES THIS SHIFT. PT HAD A SMALL BM THIS SHIFT. PT WAS ABLE TO GET COMFORTABLE AND SLEEP PART OF THE SHIFT. VSS AND NO S/S OF ACUTE DISTRESS. WILL CONTINUE TO MONITOR FOR CHANGES.
[2020-11-16 05:11] LABS: ABSOLUTE NEUTROPHILS 7.3 thou/uL (1.4-8.2); BASOPHILS 0.4 % (0.0-2.0); EOSINOPHILS 0.4 % (0.0-3.0); HEMATOCRIT 29.5 % (37.0-47.0); HEMOGLOBIN 9.5 gm/dL (12.0-15.0); LYMPHOCYTES 4.4 % (24.0-44.0); MCHC 32.3 g/dL (28.0-37.0); MCV 86.7 fL (80.0-100.0); MONOCYTES 8.1 % (1.0-8.0); PLATELET COUNT 243 thou/uL (150-400); POLYS 86.7 % (36.0-66.0); RDW 16.8 % (10.5-14.5); WBC 8.4 thou/uL (4.0-11.0)
[2020-11-16 05:32] LABS: CALCIUM 8.3 mg/dL (8.5-10.1); CREATININE 0.5 mg/dL (0.6-1.0); MAGNESIUM 1.4 mg/dL (1.8-2.4)
[2020-11-16 07:09] VITALS: BP 127/79
--- NOTE | 2020-11-16 07:12 | EKG ---
[address] [address] ELECTROCARDIOGRAM REPORT Name: LUIS ENRIQUE FLETCHER Room #: 451-P ADM IN M.R.#: [id number] Admission: 11/14/20 Attend Phys: Rodolfo Murguia MD Discharge: Date of : 43 Report #: [id number] [facility] Test Date: 2020-11-15 Test Time: 18:53:03 Pat Name: LUIS ENRIQUE FLETCHER Department: Room: [facility] Gender: F Oven Heater Helper: ROBERTO : 1945 Requested By: Rodolfo Murguia Order Number: [id number] MD: Parag Spencer Measurements Intervals Spencer Rate: 124 P: 51 DC: 120 QRS: 16 QRSD: 88 T: 34 QT: 335 QTc: 482 Interpretive Statements Sinus tachycardia Inferior infarct, old Artifact in lead(s) III,aVL,aVF,V1,V2,V3,V4,V5,V6 Compared to ECG 11/14/2020 18:06:51 ST (T wave) deviation no longer present Myocardial infarct finding still present Electronically Signed On 11-16-2020 7:12:41 CIRCULAR DISTRIBUTOR by Parag Spencer [email or web address] <ELECTRONICALLY SIGNED> By: Parag Spencer MD, FAC 11/16/20711 52 52 Parag Spencer MD, [facility] /EPI
--- NOTE | 2020-11-16 08:27 | NUR ---
ORDERS RECEIVED FOR PT EVAL AND TREAT. PHYSICAL THERAPY EVALUATIONS HAVE BEEN COMPLETED ON THIS Pt TWICE IN THE LAST MONTH ON OTHER ADMISSIONS AND Pt HAS BEEN AT BASELINE LEVEL BOTH TIMES. Pt IS MAX A FOR TRANSFERS AND ADLs AT BASELINE. Pt NOT APPROPRIATE FOR PT EVALUATION AGAIN IN ACUTE SETTING. DISCUSSED THIS WITH DR. HINES WHO WAS AGREEABLE TO CANCEL PT ORDER THIS ADMISSION.
[2020-11-16 11:37] VITALS: BP 135/82
--- NOTE | 2020-11-16 15:44 | NUR ---
PHYSICIAN CONSULTED NEURO, PULM, AND PSYC. CARE TEAM TO DISCUSS WITH SON ABOUT POSSIBLE PEG TUBE PLACEMENT OR PALLIATIVE/HOSPICE SERVICES. PLAN WOULD BE FOR PT TO RETURN TO [facility] ONCE MEDICALLY STABLE. IF PT IS MEDICALLY STABLE TO DC OVER THE WEEKEND CONTACT [facility] AT . FAX ORDERS TO . CM FOLLOWING REGARDING DC PLANNING.
[2020-11-16 15:51] VITALS: BP 119/66
--- NOTE | 2020-11-16 17:09 | NUR ---
ASSUMED CARE OF PATIENT AT SHIFT CHANGE. ASSESSMENT CHARTED. MEDICATIONS ADMINISTERED PER EMAR; CRUSHED IN APPLESAUCE. VSS. PATIENT IS ALERT TO SELF AND AWAKE. ABLE TO ANSWER YES/NO QUESTIONS. PATIENT IS BEING CONSIDERED FOR PALLIATIVE CARE. SON CAME BY TO SEE PATIENT AND SPEAK TO PROVIDERS. PROVIDER F/U AND WILL BE SPEAKING TO ADMINISTRATORS ON HOSPICE PROTOCOL. AWAITING NEW ORDERS AND/OR CONSULTS. WOUND CARE COMPLETE. ABX HUNG W NO ISSUES. PATIENT DENIES PAIN AND DOES NOT APPEAR IN ANY APPARENT PAIN. WILL CONTINUE TO MONITOR AND FOLLOW PLAN OF CARE
[2020-11-16 19:32] VITALS: BP 96/58
[2020-11-17 04:39] LABS: HEMATOCRIT 30.7 % (37.0-47.0); MCH 28.3 pg (26.0-34.0); MCHC 32.8 g/dL (28.0-37.0); MCV 86.4 fL (80.0-100.0); RBC 3.55 mil/uL (4.20-5.00); WBC 7.7 thou/uL (4.0-11.0)
[2020-11-17 04:54] LABS: CALCIUM 8.4 mg/dL (8.5-10.1); CREATININE 0.6 mg/dL (0.6-1.0); POTASSIUM 3.2 mmol/L (3.5-5.1)
--- NOTE | 2020-11-17 05:48 | NUR ---
Pt. rested quietly at intervals during the night when checked on during frequent rounds. Wound care done to coccyx as ordered. She is oriented to self and denies any pain. Incontinent of pain and sandor care given. Pt. turned and repositioned. Bed alarm is on.
[2020-11-17 07:30] VITALS: BP 136/80
--- NOTE | 2020-11-17 11:10 | HC ---
[facility] [place] [address] CONSULTATION Name: LUIS ENRIQUE FLETCHER Room #: 451-P ADM IN M.R.#: [id number] Admission: 11/15/20 Attend Phys: Rodolfo Murguia MD Discharge: Date of : 43 Report #: [id number] THIS REPORT FOR: cc: Nat Lee MD, Ramilo MD [place], Roxane S. DO ~ DATE OF SERVICE: 11/16/2020 NEUROLOGY CONSULTATION HISTORY OF PRESENT ILLNESS: The patient is a 75-year-old female, I was asked to see because of deteriorating condition. The patient was admitted to the hospital on 11/14/2020 from [facility]. The patient was called there because the "patient did not look good" and she was tachycardic. She had just been released from [facility] on 11/12/2020 for a 1-week stay secondary to acute on chronic respiratory failure, right lower lobe pneumonia. I was able to speak to her son today. He told me that the patient has a prior history of aneurysm and prior to COVID, her had . She had been in the long-term and he had been seeing her every other day but once COVID came, he had not seen her for a year and when he did see her for the first time, he was shocked by how much weight she had lost. He tells me that his mother does not want a feeding tube and he is going to speak to her today to make sure she understands the consequences of that. He told me that he does not want to override her wishes. PAST MEDICAL HISTORY: COVID-19, hypertension, aneurysm, stroke, hypothyroidism, coronary artery disease, GERD. PAST SURGICAL HISTORY: Gastrostomy. MEDICATIONS: In hospital; albuterol q.4 hours, Maxipime 2 grams daily, famotidine 20 mg daily, Flomax 0.4 mg daily, levothyroxine 25 mcg daily, metoprolol 25 mg b.i.d., vancomycin 750 mg q.12 hours. ALLERGIES: ASPIRIN. VITAL SIGNS: Temperature 37.2, pulse rate 92, respiratory rate 14, blood pressure 135/82, bedside pulse oximetry 97%. LABORATORY DATA: Hematology: White blood cell count 8.4, hemoglobin 9.5, hematocrit 29.5, MCV 86.7, platelet count 243,000. Urinalysis negative. Chemistry: Sodium 133, potassium 3, chloride 99, carbon dioxide 28, BUN 8, [place] [address] CONSULTATION Name: LUIS ENRIQUE FLETCHER Room #: 451-P ADM IN [facility].#: [id number] Admission: 11/15/20 Attend Phys: Rodolfo Murguia MD Discharge: Date of : 43 Report #: [id number] creatinine 0.5, GFR 145. Liver functions normal. B12 from 10/24/2020 of 869 and TSH 1.331. IMAGING: CT scan of the head demonstrates severe periventricular white matter disease and an old right suboccipital craniotomy with encephalomalacia present throughout the cerebellum, right greater than left. NEUROLOGIC: The patient is sitting up in bed with her mouth open. She is breathing through her mouth. Cranial nerves 2-12 are grossly intact. She does not answer any questions. On command, she can move her hands by wiggling her fingers. This is done on the right better than the left. She did not wiggle her toes. Reflexes are trace throughout. Plantar responses appear extensor bilaterally. She cannot cooperate with coordination and is nonambulatory. IMPRESSION AND PLAN: This patient may have an underlying dementia. I suspect there is also some depression. For the dementia, she has had a recent B12 and thyroid and these are normal. She does have a prior history of aneurysm and has extensive microvascular disease. I am going to order an MRI of the head to make sure that she has not had a stroke. The patient also has history of aspiration, confirmed by video swallow study. I have ordered a chest x-ray to make sure that she has not developed aspiration pneumonia. I thank you for your kind referral of the patient and we will continue to follow her with you. <ELECTRONICALLY SIGNED> By: Estefany Simmons DO 11/17/20 1110 1206 1939 Estefany Simmons DO /nt
[2020-11-17 13:50] VITALS: BP 101/53
[2020-11-17 15:03] VITALS: BP 101/53
[2020-11-17 15:55] VITALS: BP 89/56
[2020-11-17 16:18] LABS: BE(vivo) 5.5 mmol/L (-2 to +3); HCO3 29.4 mmol/L (22.0-26.0); PCO2 40.4 mmHg (35.0-45.0); PO2 95.2 mmHg (80.0-100.0); sO2 97.7 % (92.0-98.0)
[2020-11-17 16:52] VITALS: BP 83/36
--- NOTE | 2020-11-17 17:01 | NUR ---
ASSUMED PT CARE AROUND 0730. PT ALERT X ORIENTED X SELF. ON ROOM AIR. INCONTINENT OF BB, Q X 2 TURN. IV RT AC. DIET PUDDONG CONSISTENCY. HEART RATES WAS RUNNING AT 120'S, NOTIFIED HOSPITALIST AROUND 9AM. RN TALKED TO PT'S SON AROUND 0830 AND SON WANTED TO KNOW DR'S PLAN, RN SPOKE TO HOSPITALIST ABOUT SON'S CONCERN AND HOSPITALIST SAID, HE WILL CONTACT PT'S SON. PT ATE 25% OF BREAKFAST. HAD A BM AND DID DRESSING CHANGE AROUND 10AM. PT MONITORING EVERY 1 HR.
[2020-11-17 17:41] LABS: CALCIUM 8.1 mg/dL (8.5-10.1); CREATININE 0.6 mg/dL (0.6-1.0); POTASSIUM 3.1 mmol/L (3.5-5.1)
[2020-11-17 19:09] VITALS: BP 101/54
[2020-11-17 23:13] LABS: URINE BILIRUBIN NEGATIVE (Negative); URINE BLOOD NEGATIVE (Negative); URINE CLARITY CLEAR; URINE COLOR YELLOW; URINE GLUCOSE-RANDOM* NEGATIVE (Negative); URINE KETONES 1+ (Negative); URINE LEUKOCYTES-REFLEX TRACE (Negative); URINE NITRITE-REFLEX NEGATIVE (Negative); URINE PROTEIN (DIPSTICK) 1+ (Negative); URINE SPECIFIC GRAVITY >= 1.030 (1.005-1.035); URINE UROBILINOGEN 0.2 E.U./dl (0.2-1.0)
--- NOTE | 2020-11-17 23:28 | NUR ---
DR FUNK CALL TO CHECK ON PT AND ASKED ABOUT POTASSIUM LAB AND LAB EARLIER WAS 3.1.DR ASKED NURSE TO PAGE THE WAFER MOUNTER AND ASKED FOR POTASSIUM REPLACEMENT.DR FUNK ALSO ASKED NURSE TO DO STRAIGHT CATHETER TO GET URINE SAMPLE FOR URINALYSIS.DR FUNK ALSO ASKED NURSE TO HOLD 0200 KEPPRA IF NO SEIZURE ACTIVITY NOTICED AND WILL SEE PT IN THE MORNING
[2020-11-17 23:48] LABS: FINE GRANULAR CASTS 4-10 Moderate /LPF (None Seen); HYALINE CASTS 0-3 Few /LPF (None Seen); MUCUS 4-6 Moderate strn/LPF (None Seen); SQUAMOUS 0-3 Few /LPF (0-3); WBC CASTS 0-3 Few /LPF (None Seen); YEAST-REFLEX Present (None Seen)
[2020-11-17 23:51] LABS: AMORPHOUS URATES Few /LPF (None Seen); BACTERIA-REFLEX 1-9 Few /HPF (None Seen); CRYSTALS None Seen /LPF (None Seen); URINE RBC 0-2 Rare /HPF (0-2)
--- NOTE | 2020-11-18 02:22 | NUR ---
PT CARE ASSUMED AT 1900 WITH PT IN BED.PT APPEARED TO BE SLEEPING MOST OF THE SHIFT.PT IS TOTAL CARE AND Q2 TURN.PT IS AON 2L OF O2 VIA NC.WOUND DRESSING ON SACRUM CHANGE.PT IS INCONTINENT TO B/B.PT HAS PRAFO BOOTS ON.WILL CONTINUE TO MONITOR PER POC
[2020-11-18 04:20] LABS: HEMATOCRIT 24.9 % (37.0-47.0); MCH 27.7 pg (26.0-34.0); MCV 86.8 fL (80.0-100.0); RBC 2.87 mil/uL (4.20-5.00); RDW 17.2 % (10.5-14.5)
[2020-11-18 04:24] LABS: CALCIUM 7.7 mg/dL (8.5-10.1); CREATININE 0.6 mg/dL (0.6-1.0); MAGNESIUM 1.5 mg/dL (1.8-2.4)
[2020-11-18 04:29] LABS: POTASSIUM 2.9 mmol/L (3.5-5.1)
[2020-11-18 07:07] VITALS: BP 103/50
[2020-11-18 14:20] VITALS: BP 86/34
[2020-11-18 14:57] VITALS: BP 79/34
[2020-11-18 19:09] VITALS: BP 75/31
--- NOTE | 2020-11-18 20:20 | NUR ---
PT ALERT AND AWAKE, SOMETIMES ANSWERS YES/NO APPROPRIATELY. PATIENT RAN A LOW TEMP, APAP SUPPOSITORY GIVEN. PATIENT HAS CONGESTED COUGH AND PRN SUCTION GIVEN WITH REGINA. PATIENT HAS TREMORS IN FACE AND HANDS. FAMILY AT BEDSIDE AND THEY ASKS ABOUT PATIENTS BREATHING. SPOKE WITH FAMILY AND THEY WERE OK. PATIENT BREATHING SHALLOW, NON LABOROUS, LUNGS COURSE. PATIENT DID HAVE AN EPISODE APPROX 1500 WERE SHE STARED OFF AT THE WALL, VSS, BLOOD PRESSURE LOW, SATS 98%. DOCTOR NOTIFIED AND AWARE OF ALL. WOUND CHANGE COMPLETED. IV FLUIDS AND ANTIBIOTICS GIVEN. NO SIGNS OF DISTRESS. WILL CONTINUE TO MONITOR.
[2020-11-19 00:54] VITALS: BP 99/55
[2020-11-19 05:00] VITALS: BP 95/51
--- NOTE | 2020-11-19 07:37 | EKG ---
[address] [employer] [place] [address] ELECTROCARDIOGRAM REPORT Name: LUIS ENRIQUE FLETCHER Room #: 451-P ADM IN M.R.#: [id number] Admission: 11/15/20 Attend Phys: Rodolfo Murguia MD Discharge: Date of : 43 Report #: [id number] [facility] Test Date: 2020-11-17 Test Time: 16:05:08 Pat Name: LUIS ENRIQUE FLETCHER Department: Room: [facility] Gender: F Communications Operator: FILIBERTO : 1945 Requested By: Rodolfo Murguia Order Number: [id number] MD: Parag Spencer Measurements Intervals Purdum Rate: 128 P: 54 AR: 117 QRS: 8 QRSD: 78 T: 43 QT: 335 QTc: 489 Interpretive Statements Sinus tachycardia Probable left atrial enlargement Borderline low voltage, extremity leads Probable anteroseptal infarct, old Compared to ECG 11/15/2020 18:53:03 No significant changes Electronically Signed On 11-19-2020 7:37:04 DATA GOVERNANCE ANALYST by Parag Spencer [email or web address] <ELECTRONICALLY SIGNED> By: Parag Spencer MD, [facility] 11/19/20 0737 1605 04 Parag Spencer MD, [facility] /EPI
[2020-11-19 07:38] LABS: CALCIUM 8.2 mg/dL (8.5-10.1); CREATININE 0.7 mg/dL (0.6-1.0); POTASSIUM 3.4 mmol/L (3.5-5.1)
--- NOTE | 2020-11-19 08:01 | NUR ---
ASSUME CARE 1900. BP RUNS LOW/TACHYCARDIA NOTED. VERY SHALLOW AND LABORED BREATHING. PT ON 3LNC SATS MID 90s. CONTINUOUS PULSE OX. PT ON ABX AND KEPPRA FOR SEIZURES. CLERICAL MANAGER NOTIFIED ON LOW BPs WITH HIGH HR. CONTINUE TO MONITOR PT AND REPLACE MAG. PT DOESNOT SEEM TO BE PROGRESSING WELL. PLAN IS TO DISCUSS WITH FAMILY ABOUT COMFORT CARE IF PT CONTINUES TO DETERIORATE. WILL CONTINUE TO MONITOR AND FOLLOW WITH POC
[2020-11-19 08:47] VITALS: BP 81/44
[2020-11-19 09:15] VITALS: BP 81/44
--- NOTE | 2020-11-19 10:52 | NUR ---
ASSUMED PT CARE AROUND 0700.PT UNRESPONSIVE. IV 20 GUAGE LF FA. VITALS UNSTABLE, BP LOW AND HEART RATE HIGH (ABOVE 120'S). NOT OPENING EYES WHEN CALLED. PT ON DNR. ON TELE MONITORING.PT WAS ON 2-3L/O2/NC, AROUND 10AM PT'S, O2 SAT WENT BELOW 80'S. RT WAS IN THE PT'S ROOM AND PUT A NON-REBREATHER MASK. STILL O2 WAS IN THE 60'S-70'S. RN NOTIFIED PT'S SON AND DR. HINES ABOUT THE SITUATION. PT'S SON CAME AROUND [address] HINES TALKED TO PT'S SON AT THE BEDSIDE. WILL CONT TO MONITOR.
--- NOTE | 2020-11-19 12:11 | NUR ---
RN ELIGIBILITY AND CNO AUTHORIZED TWO SONS AND DTR IN LAW TO VISIT. ALL WERE PRESENT THIS AM WHEN PT PASSED AROUND 11:37AM.
--- NOTE | 2020-11-19 12:18 | NUR ---
THIS MANAGER GLOBAL PROVIDED SUPPORT TO THE THREE CHILDREN AFTER THE OF THE PATIENT. WE DID LIFE REVIEW. WE HAD A TIME OF PRAYER REMEMBERING HER. THIS MANAGER GLOBAL PROVIDED LITERATURE AND COMMUNICATION INFORMATION FOR MAKING FINAL ARRANGEMENTS TO HAVE HER BODY PICKED UP BY THE HOME.
--- NOTE | 2020-11-19 13:08 | NUR ---
FAXED CLINICAL UPDATE TO [facility] RECEIVED CONFIRMATION AND LEFT MSG WITH PELON IN ADM.
== END 2020-11-19 13:47 | DRG 871 ==
LOC: ER 17:48 → EROBS 21:58 → 4W 21:58 → ER 21:58 → 4W 21:58 → EROBS 23:10 → 4W 11-15 11:00 → EROBS 11-15 11:00 → 4W 11-19 11:22
PROVIDERS: Internal Medicine Pulmonary Disease; Nurse Practitioner Family; Psychiatry & Neurology Neurology; ADMIT Internal Medicine; ATTEND Internal Medicine
DX: A41.9 Sepsis, unspecified organism (principal); L89.154 Pressure ulcer of sacral region, stage 4; J69.0 Pneumonitis due to inhalation of food and vomit; E43 Unspecified severe protein-calorie malnutrition; G92 Toxic encephalopathy; U07.1 COVID-19; J12.82 Pneumonia due to coronavirus disease 2019; J96.10 Chronic respiratory failure, unspecified whether with hypoxia or hypercapnia; E87.1 Hypo-osmolality and hyponatremia; E87.2 Acidosis; I69.351 Hemiplegia and hemiparesis following cerebral infarction affecting right dominant side; Z68.1 Body mass index [BMI] 19.9 or less, adult; Z66 Do not resuscitate; I10 Essential (primary) hypertension; R13.10 Dysphagia, unspecified; N32.81 Overactive bladder; E03.9 Hypothyroidism, unspecified; I25.10 Atherosclerotic heart disease of native coronary artery without angina pectoris; K21.9 Gastro-esophageal reflux disease without esophagitis; E86.0 Dehydration; D63.8 Anemia in other chronic diseases classified elsewhere; F03.90 Unspecified dementia, unspecified severity, without behavioral disturbance, psychotic disturbance, mood disturbance, and anxiety; R53.81 Other malaise; F32.9 Major depressive disorder, single episode, unspecified; D50.9 Iron deficiency anemia, unspecified; R56.9 Unspecified convulsions; Z86.16 Personal history of COVID-19; I69.320 Aphasia following cerebral infarction; I69.391 Dysphagia following cerebral infarction; Z79.01 Long term (current) use of anticoagulants; Z79.52 Long term (current) use of systemic steroids; Z79.899 Other long term (current) drug therapy; Z88.8 Allergy status to other drugs, medicaments and biological substances; Z51.5 Encounter for palliative care
CPT/HCPCS: 10045